=== PATIENT | female | born 1955 | race Caucasian/White ===

== ENCOUNTER 2017-02-17 16:44 | Emergency (ER) | payer OTHER ==
[~2017-02-17] VITALS: Ht 154.9 cm; Wt 80.0 kg
[~2017-02-17 16:44] MED LIST: BUSP5TAB3 PO; FENO160T6 PO; HYDR25TA4 PO; LAMO200T2 PO; NITR0.4T SL; OXYC5TAB72 PO; PROP20TA5 PO; PRV40T PO; TRAZ-115 PO; WARF6TAB6 PO
[2017-02-17 16:56] VITALS: BP 170/90; PULSE 77; RESP 16; O2SAT 99
[2017-02-17] MEDS ORDERED: GABA600T2 PO (17:01)
[2017-02-17] MEDS ORDERED: LISI1TAB7 PO (17:01)
--- NOTE | 2017-02-17 18:33 | ED.REPORT ---
HPI-Back Pain 40 and Over Date of Service Feb 17, 2017 ED Provider: Yamil Ruiz DO The patient is a 61 year old female w/ a hx of HTN, bipolar, and lower back arthritis who presents to the ED c/o sudden onset left sided lower back pain that shot down the back of her leg. It began this afternoon when she sat down into her car. Pt is on warfarin. She denies chest pain, abdominal pain, nausea , vomiting, numbness, and weakness. Nursing Notes Stated Complaint: LEFT HIP/LEG PAIN Chief Complaint: Back Pain or Injury Nursing Notes Reviewed: Yes Allergies: Coded Allergies: No Known Allergies (Verified Allergy, Unknown, 02/17/17) Scheduled Fenofibrate (Lofibra) 160 Mg Tablet 160 MG PO DAILY Gabapentin (Gabapentin) 600 Mg Tablet 600 MG PO TID Lamotrigine (Lamotrigine) 200 Mg Tablet 200 MG PO DAILY Lisinopril / HCTZ 10-12.5 mg (Lisinopril / HCTZ 10-12.5 mg) 1 Each Tablet 1 EACH PO DAILY Pravastatin (Pravachol) 40 Mg Tab 40 MG PO DAILY Propranolol HCl (Propranolol HCl) 20 Mg Tablet 20 MG PO BID Trazodone (Trazodone) 50 Mg Tablet 50 MG PO HS Warfarin Sodium (Warfarin Sodium) 6 Mg Tablet 6 MG PO DAILY Scheduled PRN Nitroglycerin SL (Nitrostat) 0.4 Mg Tab.subl 0.4 MG SL Q5MIN PRN PRN For Chest Pain oxyCODONE (oxyCODONE) 5 Mg Tablet 5 MG PO Q6 PRN PRN For Pain General Time Seen by MD: 18:31 Chief Complaint Back pain Hx Obtained From: Patient Arrived By: Walk-in Sudden in Onset?: Yes Onset Occurred: 1 - 4 hours ago Symptom Duration: Since onset Location: : Spinal lumbar area Quality: Painful Radiation: : Does not radiate Severity: Current: Moderate Recent Healthcare: No recent doctor visit, No recent hospitalization Similar Sx Previous: No Past Medical History Past Medical History 1. Hypertension. 2. History of outpatient treated pneumonia. 3. Heartburn. 4. Low back arthritis. 5. Bipolar disorder with history of more manic than depressive. 6. History of anxiety attacks many years ago. Apparently she had been having issues since she was a young child before she was diagnosed with bipolar disorder and spent time in mental hospital when she was younger. 7. History of right upper extremity thrombophlebitis, on six months of Coumadin. 8. 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 9. History of previous colon polyps with most recent colonoscopy showing multiple polyps that were removed by cautery and snare polypectomy except for one polyp that had to be broken down in pieces but then lost the pieces so could not extract at the end of procedure. 10. Past history of psoriasis. 11. Migraines 12. Cerebrovascular accident with 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 13. GI bleed -recently hospitalized 14. Right internal carotid artery stenosis Past Surgical History 1. Appendectomy. 2. Cholecystectomy. 3. Tonsillectomy. 4. Total hysterectomy. 5 Endoscopy Family History Noncontributory Smoking History Current Every Day Smoker Social History Alcohol Use: Denies alcohol use Drug Use: Denies drug use Other Social History: Local resident Ambulatory Status Independent Review of Systems Cardiovascular: Denies: Chest pain GI: Denies: Abdominal pain, Nausea, Vomiting Musculoskeletal: Reports: Back pain Neurologic: Denies: Numbness, Weakness Complete sys rev & neg: except as marked. Physical Exam Initial Vital Signs Vital Signs (First) Date Time Temp Pulse Resp B/P Pulse Ox O2 Delivery O2 Flow Rate FiO2 02/17/17 16:56 37.0 77 16 170/90 99 02/17/17 22:18 Room Air Initial VS: Reviewed Head / Eyes: Atraumatic, Normocephalic, PERRL ENT: Mucous membranes moist Extremities: Vascular intact, Neuro intact, No swelling, No tenderness Skin: Warm, Dry General/Constitutional: Awake, Alert, Cooperative, Not toxic appearing Respiratory / Chest: Atraumatic, Breath sounds NL, Breath sounds = bilat Cardiovascular: Heart rate NL, Regular rhythm, Heart sounds NL Abdomen: Atraumatic, Soft, Non-tender Flank / Spine / Paraspinal: Positive: Lumbar paraspinal tend... Neurologic: Oriented X3, Speech NL, No motor deficits, No sensory deficits, Reflexes equal bilat Interpretation & Diagnostics MRI LUMBAR SPINE CONCLUSION: Degenerative disc disease with left lateralizing disc protrusion at L4-5, with mild left inferior foraminal stenosis, and borderline central spinal stenosis. Annular tear and rightward disc protrusion at L3-4, with mild right lateral recess stenosis. Diffuse lower lumbar facet hypertrophy. No significant central spinal stenosis. Radiologist: Shamika Garrido M.D. Lab Results Interpretation Result Diagram: 02/17/17 1900 02/17/17 1900 Test 02/17/17 19:00 White Blood Count 7.3th/mm3 (3.8-10.1) Red Blood Count 4.24mil/mm3 (3.90-5.20) Hemoglobin 11.9g/dL (12.0-15.6) Hematocrit 37.8% (35.0-46.0) Mean Corpuscular Volume 89.2fL (81-100) Mean Corpuscular Hemoglobin 28.1pg (27.0-35.0) Mean Corpuscular Hemoglobin Concent 31.5% (32.0-37.0) Red Cell Distribution Width 14.1% (12.3-15.4) Platelet Count 294bil/L (150-400) Neutrophils (%) (Auto) 50.5% (40-74) Lymphocytes (%) (Auto) 36.4% (14-46) Monocytes (%) (Auto) 10.1% (4-12) Eosinophils (%) (Auto) 2.3% (0-5) Basophils (%) (Auto) 0.4% (0-3) Prothrombin Time 31.9sec (8.1-12.5) Prothromb Time International Ratio 2.92ratio Sodium Level 135mEq/L (134-144) Potassium Level 4.3mEq/L (3.5-5.2) Chloride Level 97mEq/L (97-108) Carbon Dioxide Level 23mmol/L (18-29) Blood Urea Nitrogen 14mg/dL (8-27) Creatinine 0.74mg/dL (0.57-1.00) Estimat Glomerular Filtration Rate 114mL/min (>59) Glucose Level 80mg/dL (60-99) Calcium Level 10.0mg/dL (8.5-10.1) Total Bilirubin 0.2mg/dL (0.0-1.2) Aspartate Amino Transf (AST/SGOT) 22U/L (0-50) Alanine Aminotransferase (ALT/SGPT) 26U/L (0-32) Alkaline Phosphatase 92U/L (25-165) Total Protein 7.6g/dL (6.4-8.4) Albumin 4.4g/dL (3.4-5.0) Re-Eval/Medical Decision Med Decision/Clinical Course Sudden severe lumbar pain with radiculopathy. She has warfarin use and an INR greater than 2. This puts her at risk for spontaneous hemorrhage/epidural hematoma. As such MRI was indicated and performed. MRI shows degenerative changes as well as disc disease and an annular tear. Certainly no evidence of an acute neurosurgical emergency. She did not have a cord syndrome. She is not of cauda equina syndrome. Her pain was adequately treated. She will be discharged with a take home pack of Percocet. Evidently she takes oxycodone at home and she is going to have a refill in 2 days. We will bridge her with for her 2 days with the oxycodone that were sending her with. I will have her call her doctor tomorrow to have the MRI reviewed and possible referral for physical therapy or neurosurgical consultation. Re-Evaluation/Progress : Time of Eval: 23:15 Patient Status: Condition improved Re-Evaluation/Progress Note: Pt rechecked. Pain is much improved after medication. Informed pt of plan of treatment and plan for discharge. She understands and agrees with plan. F/U and RTER warnings given. All questions addressed. Counseled Regarding: Diagnosis, Lab results, Need for follow-up, When/why to return to ED Discharge & Departure Impression: Primary Impression: Low back pain Chronicity: unspecified Back pain laterality: unspecified Sciatica presence : unspecified whether sciatica present Qualified Code: M54.5 - Low back pain Additional Impression: Left lumbar radiculopathy Disposition: Home Discharge Condition All VS Reviewed: Yes Condition: Stable Patient Instructions: Lumbar Radiculopathy (ED) Additional Instructions: The MRI shows that you have degenerative disc disease with a left lateralizing disc protrusion at L4-L5 with mild left foraminal stenosis and borderline central spinal stenosis. You also have an annular tear and moderate disc protrusion at L3 and L4 with mild lateral recess stenosis. You have degenerative changes throughout your low back. There was no epidural bleeding or epidural hematoma. Discuss these results with your primary care physician. Take 1-2 Percocet every 6 hours as needed for pain. Do not take any other sedating medications while taking the Percocet. Do not drive tonight or consume alcohol tonight. Do not drive consume alcohol or ingest acetaminophen while taking the Percocet. Call your doctor tomorrow morning for a follow-up appointment. Have your doctor get the final radiology review of the MRI. Referrals: Surya Gary MD (PCP) Scribe Attestation Portion of this note were transcribed by Cristine Lozano. I, Dr. Ruiz, personally performed the history, physical exam, and medical decision-making: I reviewed and confirmed the accuracy for the information in the transcribed note. Signed by: collins Schrader, 02/17/17 [id number] copies to: Surya Gary MD, Todd P DO Feb 17, 2017 18:33 Cristine Lozano Feb 17, 2017 22:57
[2017-02-17] MEDS ORDERED: HYDROmorphone 1 mg/mL Inj IM ONE (18:45)
[2017-02-17 19:14] LABS: BASOPHILS % (AUTO) 0.4 % (0-3); EOSINOPHILS % (AUTO) 2.3 % (0-5); MONOCYTES % (AUTO) 10.1 % (4-12); Mean Corpuscular Hemoglobin 28.1 pg (27.0-35.0); Mean Corpuscular Volume 89.2 fL (81-100); NEUTROPHILS % (AUTO) 50.5 % (40-74); Platelet Count 294 bil/L (150-400)
[2017-02-17 19:30] LABS: INR 2.92 ratio
[2017-02-17] MEDS: HYDROmorphone 0.5 mg/0.5 mL iSecure Syringe IVPUSH PRN ×7 (19:50→23:50)
[2017-02-17 22:18] VITALS: BP 168/90; PULSE 72; RESP 17; O2SAT 98
[2017-02-17] MEDS ORDERED: _oxyCODONE/APAP 5-325 mg Tablet PO PRN (23:40)
[2017-02-18 00:03] VITALS: BP 160/89; PULSE 70; RESP 16; O2SAT 99
--- NOTE | 2017-02-18 10:57 | DRSVH ---
PROCEDURE: MRI LUMBAR SPINE WITH AND WITHOUT CONTRAST ([id number]) INDICATIONS: Sudden severe back pain with radiculopathy TECHNIQUE: Noncontrast sagittal T1 spin echo and T2 fast spin echo, sagittal STIR, axial T1 and T2 fast spin ech o through the lumbar spine. In cases with scoliosis, additional coronal T2 fast spin echo may be per formed. After the administration of contrast, sagittal and axial T1 spin echo with fat saturation th rough the lumbar spine. COMPARISON: [facility], MR, LUMBAR SPINE W/O CONTRAST, 06/01/2008, 13:55. MR, LUMBAR SPINE W/O CONTRAST, 07/04/2006, 19:59. FINDINGS: Image quality: Excellent. Alignment and curvature: There is trace retrolisthesis of L3 on L4, unchanged Marrow: Marrow is of normal overall signal. No acute vertebral body compression fractures. No susp icious marrow enhancement. Spinal cord: Conus medullaris terminates at the L1 level. Visualized spinal cord demonstrates bud l signal, without suspicious enhancement. Paraspinous soft tissues: No paravertebral masses or abnormal enhancement. Discs: Mild/moderate desiccation is present throughout the lumbar spine. L1-L2: No disc bulge, spinal stenosis or foraminal narrowing. L2-L3: Minimal disc bulge without spinal stenosis or foraminal narrowing. L3-L4: Mild disc bulge with minimal spinal stenosis. Minimal to mild left foraminal narrowing with fa cet and ligamentum flavum hypertrophy. Posterior hyperintense signal is present most likely related t o small annular tear. L4-L5: Mild disc bulge including a left lateral/foraminal component. Mild to moderate spinal stenosis with moderate left and mild to moderate right foraminal narrowing. Facet and ligamentum flavum hyper trophy are present. L5-S1: Minimal disc bulge without spinal stenosis. IMPRESSION: 1. Mild multilevel degenerative changes as above. 2. Spinal stenosis is most prominent at L4-5 secondary to disc bulges with contributory effect of fac et and ligamentum flavum arthropathy. 3. Multilevel foraminal narrowing, secondary to facet and ligament of flavum arthropathy. 4. No evidence of epidural hematoma. Dictated by: Telma Light M.D. on 02/18/2017 at 10:25 Approved by: Telma Light M.D. on 02/18/2017 at 10:56
== END 2017-02-18 00:17 | disposition home or self-care (01) ==
LOC: SED 16:44
DX: M54.16 Radiculopathy, lumbar region (principal); I10 Essential (primary) hypertension; F17.200 Nicotine dependence, unspecified, uncomplicated; Z79.01 Long term (current) use of anticoagulants
CPT/HCPCS: 36415; 72158; 80053; 85025; 85610; 96374; 96375; 96376; 99285; A9585; J1170; J3360

== ENCOUNTER 2017-03-03 14:18 | Inpatient (IN) | payer MEDICARE, OTHER ==
[~2017-03-03] VITALS: Ht 154.9 cm; Wt 85.5 kg
[~2017-03-03 14:18] MED LIST changes: -BUSP5TAB3 PO; +GABA600T2 PO; -HYDR25TA4 PO; +LISI1TAB7 PO
--- NOTE | 2017-03-03 14:30 | NUR ---
Admit Pt direct admit to osc unit, 1022 from urgent care; arrived via w/c - transferred to bed. Oriented to room and call light. A&Ox3, KNOX, VSS, Stating intense pain 07/30, Call to IV Therapy for IV start, Tele placed, Nicotine patch applied to Left shoulder, Belongings in closet. MD present in room. Admit nurse present for admission. Pleasant and cooperative with care. Care continues.
[2017-03-03 14:40] VITALS: BP 193/79; PULSE 81; RESP 20; O2SAT 98
--- NOTE | 2017-03-03 15:57 | PCM.HPMED ---
Subjective Date of Service March 03, 2017 Primary Provider: Admitting Physician: Swati Russell MD Primary Care Physician: Surya Gary MD Attending Physician: Swati Russell MD Chief Complaint: Persistent back pain History of Present Illness: 61-year-old female with known spinal stenosis with back pain, hypertension, heartburn, bipolar, anxiety, right MCA embolic stroke in 2014 mild residual left -sided weakness, right upper extremity thrombophlebitis in 6 months of Coumadin presented with persistent back pain Patient stated that since she visited the emergency room last time, pain has not changed. pt visited ED, 02/17 with lower back pain, MRI showed multilevel DJD , spinal stenosis with disc bulding L4-5. Pain was controlled with Oxycodone, didn't show any signs of cord compression, pt was d/rosina to home. Patient went to urgent care today with persistent back pain, As per Urgent care provider, it was noted to be radicular pain with positive straight leg raising bilaterally, mild decrease on dorsiflexion on the left. No medicine was given, given persistent pain, patient was transferred to the hospital. pt stated that pain got worse since yesterday after she cleaned her house. Patient was afraid of walking up stairs as it really worsens her pain. Did not particularly notice that her pain got worse with bending or extending her back. Since patient had a stroke 2 years ago, patient has subtle weakness on the left side, which made her fall multiple times. Patient denied falling recently. not using cane or walker. Today patient also noticed that her left foot is weaker, although able to hold against gravity but cannot elevate. Back pain usually started on lower back, traveled to the left, intermittently down to her left knee but not to her left foot. not on right side, denied loosing bowel control, denied urinary retention. had last BM yesterday. Of note, pt is scheduled to see orthopedic on , never had steroid injection in the past. pt did take oxycodone several pills but didn't help her pain. She denies fever, chills, chest pain, shortness of breath, nausea, vomiting, abdominal pain, recent sick contact or travel Review of Systems: Pertinent positives as noted in history of present illness. All other systems were reviewed and are negative Allergies Coded Allergies: No Known Allergies (Verified Allergy, Unknown, 02/17/17) Home Medications Scheduled Fenofibrate (Lofibra) 160 Mg Tablet 160 MG PO DAILY Gabapentin (Gabapentin) 600 Mg Tablet 600 MG PO TID Lamotrigine (Lamotrigine) 200 Mg Tablet 200 MG PO DAILY Lisinopril / HCTZ 10-12.5 mg (Lisinopril / HCTZ 10-12.5 mg) 1 Each Tablet 1 EACH PO DAILY Pravastatin (Pravachol) 40 Mg Tab 40 MG PO DAILY Propranolol HCl (Propranolol HCl) 20 Mg Tablet 20 MG PO BID Trazodone (Trazodone) 50 Mg Tablet 50 MG PO HS Warfarin Sodium (Warfarin Sodium) 6 Mg Tablet 6 MG PO DAILY Scheduled PRN Nitroglycerin SL (Nitrostat) 0.4 Mg Tab.subl 0.4 MG SL Q5MIN PRN PRN For Chest Pain oxyCODONE (oxyCODONE) 5 Mg Tablet 5 MG PO Q6 PRN PRN For Pain PMH Past Medical History 1. Hypertension. 2. History of outpatient treated pneumonia. 3. Heartburn. 4. Low back arthritis. 5. Bipolar disorder with history of more manic than depressive. 6. History of anxiety attacks many years ago. Apparently she had been having issues since she was a young child before she was diagnosed with bipolar disorder and spent time in mental hospital when she was younger. 7. History of right upper extremity thrombophlebitis, on six months of Coumadin. 8. 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 9. History of previous colon polyps with most recent colonoscopy showing multiple polyps that were removed by cautery and snare polypectomy except for one polyp that had to be broken down in pieces but then lost the pieces so could not extract at the end of procedure. 10. Past history of psoriasis. 11. Migraines 12. Cerebrovascular accident with 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 13. GI bleed -recently hospitalized 14. Right internal carotid artery stenosis Past Surgical History 1. Appendectomy. 2. Cholecystectomy. 3. Tonsillectomy. 4. Total hysterectomy. 5 Endoscopy Family History Noncontributory Smoking History Current Every Day Smoker Social History Hx Alcohol Use: No Hx Substance Use: No Hx Tobacco Use: Yes (SMOKES 3 CIGARETTES PER DAY HX SINCE 13Y/O) Smoking Status: Current Every Day Smoker Additional Information lives with son Exam Vital Signs Vital Sign - Last Date Time Temp Pulse Resp B/P Pulse Ox O2 Delivery O2 Flow Rate FiO2 03/03/17 14:40 37.0 81 20 193/79 98 Room Air Exam NAD, comfortably laying down on the bed no JVD, MMM, no LAD RRR, nl s1, s2 no mrg CTAB, no w,c S,ND,NT,normoactive BS+ warm, no edema, pulses 2/2 neuro:Lt dorsiflexion 3/5, plantarflexion 3/5 SLRT positive on both side, radiating to left posterior Lab and Diagnostics X-Rays, CTs and MRIs PROCEDURE: MRI LUMBAR SPINE WITH AND WITHOUT CONTRAST ([id number]) INDICATIONS: Sudden severe back pain with radiculopathy TECHNIQUE: Noncontrast sagittal T1 spin echo and T2 fast spin echo, sagittal STIR, axial T1 and T2 fast spin echo through the lumbar spine. In cases with scoliosis, additional coronal T2 fast spin echo may be performed. After the administration of contrast, sagittal and axial T1 spin echo with fat saturation through the lumbar spine. COMPARISON: [facility], MR, LUMBAR SPINE W/O CONTRAST, 2007, 13:55. MR, LUMBAR SPINE W/O CONTRAST, 07/04/2006, 19:59. FINDINGS: Image quality: Excellent. Alignment and curvature: There is trace retrolisthesis of L3 on L4, unchanged Marrow: Marrow is of normal overall signal. No acute vertebral body compression fractures. No suspicious marrow enhancement. Spinal cord: Conus medullaris terminates at the L1 level. Visualized spinal cord demonstrates normal signal, without suspicious enhancement. Paraspinous soft tissues: No paravertebral masses or abnormal enhancement. Discs: Mild/moderate desiccation is present throughout the lumbar spine. L1-L2: No disc bulge, spinal stenosis or foraminal narrowing. L2-L3: Minimal disc bulge without spinal stenosis or foraminal narrowing. L3-L4: Mild disc bulge with minimal spinal stenosis. Minimal to mild left foraminal narrowing with facet and ligamentum flavum hypertrophy. Posterior hyperintense signal is present most likely related to small annular tear. L4-L5: Mild disc bulge including a left lateral/foraminal component. Mild to moderate spinal stenosis with moderate left and mild to moderate right foraminal narrowing. Facet and ligamentum flavum hypertrophy are present. L5-S1: Minimal disc bulge without spinal stenosis. IMPRESSION: 1. Mild multilevel degenerative changes as above. 2. Spinal stenosis is most prominent at L4-5 secondary to disc bulges with contributory effect of facet and ligamentum flavum arthropathy. 3. Multilevel foraminal narrowing, secondary to facet and ligament of flavum arthropathy. 4. No evidence of epidural hematoma. Dictated by: Telma Light M.D. on 02/18/2017 at 10:25 Approved by: Telma Light M.D. on 02/18/2017 at 10:56 Assessment & Plan Acute, active Severe back pain with radiculopathy, POA, likely due to known radiculopathy. MRI 02/18 showed spinal stenosis is most prominent at L4-5 secondary to disc bulging, no signs of cord compression -will aggressively pain control with tramadol, tylenol, oxycodone, flexeril, gabapentin(increased from home dose) -appreciate PT input -monitor urinary retention, daily PVR, stool incontinence, lt foot drop Chronic, stable HTN, HLD, resume home meds after med rec #Heartburn, denied active sx, ranitidine prn #Bipolar disorder with history of more manic than depressive, continue home med #History of right upper extremity thrombophlebitis, on six months of Coumadin, continue coumadin per pharmacy check INR today #History of macular embolic blindness, 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 #migraine, not active #Cerebrovascular accident with 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 continue AC #GI bleed -recently hospitalized, trends h/h #Right internal carotid artery stenosis, not active Dispo: Patient is admitted under observation status with expectation that she will be discharged within 24-48 hours, diet:general dvt ppx:HSQ Full code Time spent 65min Swati Russell MD March 03, 2017 15:38
[2017-03-03 15:59] VITALS: PULSE 67
[2017-03-03] MEDS ORDERED: FENO160T14 PO (16:28)
[2017-03-03] MEDS: HYDROmorphone 1 mg/mL Inj IVPUSH PRN ×2 (17:03→21:23)
[2017-03-03] MEDS ORDERED: WARF2.5T82 PO (17:42)
[2017-03-03] MEDS ORDERED: WARF5TAB7 PO (17:42)
[2017-03-03] MEDS ORDERED: WARF10TA4 PO (17:42)
[2017-03-03] MEDS ORDERED: WARF7.5T4 PO (17:42)
[2017-03-03] MEDS ORDERED: PRAZ1CAP2 PO (17:43)
[2017-03-03] MEDS ORDERED: PRAM0.5T3 PO (17:44)
[2017-03-03 18:25] LABS: INR 1.39 ratio
--- NOTE | 2017-03-03 18:42 | PCM.PHAPRO ---
Progress Warfarin Management by Pharmacy: -Indication: R upper extremity thrombophlebitis on warfarin x 6 months -Home Dose: warfarin 6mg -Inr Goal: 2-3 -Inr on admit: 1.39 -H/H: 9.2/29.3 Platelets: 301 -Drug Interactions: none noted -Disease Interactions: none noted -Plan: will continue with home dose of warfarin 6mg this evening as pt has not had a dose today. Serial inr's have been ordered to monitor/follow Jeanine Mcmullen [facility] March 03, 2017 18:42
[2017-03-03 20:00] VITALS: PULSE 76
[2017-03-03 20:45] VITALS: BP 120/68; PULSE 69; RESP 18; O2SAT 94
[2017-03-04] VITALS (8 sets, daily range): BP systolic 80–127; BP diastolic 44–81; PULSE 57–78; RESP 15–19; O2SAT 94–98
[2017-03-04] MEDS: HYDROmorphone 1 mg/mL Inj IVPUSH PRN ×2 (00:10→04:40)
--- NOTE | 2017-03-04 03:36 | NUR ---
Pain Pt. rates pain from 6-8/10 throughout shift. Pt. reports IV Dilaudid 1mg effective for pain. Will continue to monitor.
[2017-03-04 06:24] LABS: BASOPHILS % (AUTO) 0.3 % (0-3); Mean Corpuscular Hemoglobin 27.7 pg (27.0-35.0)
[2017-03-04 06:37] LABS: Phosphorus 5.4 mg/dL (2.5-4.9)
[2017-03-04 06:39] LABS: INR 1.36 ratio
[2017-03-04 06:44] LABS: MONOCYTES % (AUTO) 11.2 % (4-12); Mean Corpuscular Volume 91.9 fL (81-100); NEUTROPHILS % (AUTO) 50.3 % (40-74); Platelet Count 313 bil/L (150-400)
--- NOTE | 2017-03-04 07:01 | PCM.PHAPRO ---
Progress Warfarin Management by Pharmacy: -Indication: R upper extremity thrombophlebitis on warfarin x 6 months -Home Dose: warfarin 6mg -Inr Goal: 2-3 -Inr on admit: 1.39, today = 1.36 -H/H: 9.9/32.9 Platelets: 313 -Drug Interactions: none noted -Disease Interactions: none noted -Plan: will give an increased dose of warfarin 7.5mg this evening and follow Jeanine Mcmullen [facility] March 04, 2017 07:01
[2017-03-04] MEDS ORDERED: lamoTRIgine 100 mg Tablet PO SCH (08:30)
[2017-03-04] MEDS: FENOFIBRATE 160 MG PO SCH (08:30)
[2017-03-04] MEDS ORDERED: Polyethylene Glycol (PEG) 17 Gm Powder PO SCH (08:30)
--- NOTE | 2017-03-04 10:39 | PCM.PNMED ---
Subjective Date of Service March 04, 2017 Subjective pt looks much better today, still c/o 9/10 back pain radiating to lt knee no BM yet ,cannot ambulate yet denied tingling, burning on legs, left foot weakness unchanged per pt Exam Vital Signs Vital Sign - Last Date Time Temp Pulse Resp B/P Pulse Ox O2 Delivery O2 Flow Rate FiO2 03/04/17 10:21 66 03/04/17 08:11 36.4 15 122/70 96 Room Air Intake and Output 03/03/17 03/03/17 03/04/17 Cumulative From/Thru 15:00 23:00 07:00 03/03/17 14:39 - 03/04/17 06:25 Intake Total 400 ml 1560 ml 1960 ml Output Total 400 ml 400 ml Balance 400 ml 1160 ml 1560 ml Intake Oral 400 ml 1560 ml 1960 ml Output Urine Total 400 ml 400 ml # Voids 0 0 Exam NAD, comfortably laying down on the bed no JVD, MMM, no LAD RRR, nl s1, s2 no mrg CTAB, no w,c S,ND,NT,normoactive BS+ warm, no edema, pulses 2/2 neuro:Lt dorsiflexion 3/5, plantarflexion 3/5 SLRT positive on both side, radiating to left posterior IVs and Medications Medications Reviewed: Medications were reviewed in detail Lab and Diagnostics Result Diagram: 03/04/17 0503/04/17 0555 X-Rays, CTs and MRIs PROCEDURE: MRI LUMBAR SPINE WITH AND WITHOUT CONTRAST ([id number]) INDICATIONS: Sudden severe back pain with radiculopathy TECHNIQUE: Noncontrast sagittal T1 spin echo and T2 fast spin echo, sagittal STIR, axial T1 and T2 fast spin echo through the lumbar spine. In cases with scoliosis, additional coronal T2 fast spin echo may be performed. After the administration of contrast, sagittal and axial T1 spin echo with fat saturation through the lumbar spine. COMPARISON: [facility], MR, LUMBAR SPINE W/O CONTRAST, 2007, 13:55. MR, LUMBAR SPINE W/O CONTRAST, 07/04/2006, 19:59. FINDINGS: Image quality: Excellent. Alignment and curvature: There is trace retrolisthesis of L3 on L4, unchanged Marrow: Marrow is of normal overall signal. No acute vertebral body compression fractures. No suspicious marrow enhancement. Spinal cord: Conus medullaris terminates at the L1 level. Visualized spinal cord demonstrates normal signal, without suspicious enhancement. Paraspinous soft tissues: No paravertebral masses or abnormal enhancement. Discs: Mild/moderate desiccation is present throughout the lumbar spine. L1-L2: No disc bulge, spinal stenosis or foraminal narrowing. L2-L3: Minimal disc bulge without spinal stenosis or foraminal narrowing. L3-L4: Mild disc bulge with minimal spinal stenosis. Minimal to mild left foraminal narrowing with facet and ligamentum flavum hypertrophy. Posterior hyperintense signal is present most likely related to small annular tear. L4-L5: Mild disc bulge including a left lateral/foraminal component. Mild to moderate spinal stenosis with moderate left and mild to moderate right foraminal narrowing. Facet and ligamentum flavum hypertrophy are present. L5-S1: Minimal disc bulge without spinal stenosis. IMPRESSION: 1. Mild multilevel degenerative changes as above. 2. Spinal stenosis is most prominent at L4-5 secondary to disc bulges with contributory effect of facet and ligamentum flavum arthropathy. 3. Multilevel foraminal narrowing, secondary to facet and ligament of flavum arthropathy. 4. No evidence of epidural hematoma. Dictated by: Telma Light M.D. on 02/18/2017 at 10:25 Approved by: Telma Light M.D. on 02/18/2017 at 10:56 Assessment & Plan Acute, active Severe back pain with radiculopathy, POA, likely due to known radiculopathy. MRI 02/18 showed spinal stenosis is most prominent at L4-5 secondary to disc bulging, no signs of cord compression. Initially Lt foot weakness was concerning , however upon further hx, it is thought to be result from previous stroke, rather than acute radiculopathy. -will aggressively pain control with tramadol, tylenol, oxycodone, flexeril, gabapentin(increased from home dose), avoid dilaudid iv -appreciate PT input -monitor urinary retention, daily PVR, stool incontinence, lt foot drop Chronic, stable #HTN, HLD, resume home meds #Heartburn, denied active sx, ranitidine prn #Bipolar disorder with history of more manic than depressive, continue home med , added ativan 1mg tid prn for anxiety. #History of right upper extremity thrombophlebitis, on six months of Coumadin, this is previous remote episode, Ix of full dose AC is more likely multiple embolic phenomena, -continue coumadin per pharmacy, INR 1.x, duration likely indef. 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 #migraine, not active #Cerebrovascular accident with 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 continue AC #GI bleed -recently hospitalized, trends h/h #Right internal carotid artery stenosis, not active Dispo: d/c tomorrow if pain is controlled diet:general dvt ppx:HSQ Full code Time spent 35min Swati Russell MD March 04, 2017 10:39
--- NOTE | 2017-03-04 11:54 | NUR ---
Evaluation completed. Please go to "Notes" then click on "Assessments and Notes" (bottom left corner of screen). Then select appropriate discipline tab on top of screen.
--- NOTE | 2017-03-04 12:44 | NUR ---
Social Work-screening: Data:EMR Reviewed. Pt is a 61 y/o female who was admitted on 03/03/17 for radicular pain per H&P. Pt's insurance is [employer] and PCP is Surya Gary MD. EMR reviewed. Pt's readmission score is 4-high risk. RENALDO met with pt at beside to discuss discharge planning, SW role explained. Pt is alert and oriented x3. Pt resides at home with her son and daughter in law in a 2 story home, pt is able to stay on one level of the house. Pt does not use any DME and drives. Pt has no HH or SNF history. Pt has no fpc care insurance or VA benefits. SW discussed DPOA/ advanced directive, pt confirms she has not completed this, SW provided her with copy of paperwork. Pt has anxiety and bipolar at baseline. Pt sees local psychologist and feels like she is well managed. PT saw pt and recommended SNF placement, pt only ambulated 3 ft. SW discussed SNF placement with pt, pt states she will think about it, but she would prefer to return home with HH services and Fww. SW provided pt with HH choice list, pt would like referral to [facility] for RN, PT, and OT. RENALDO called Emmanuel with [facility] and provided him with referral for RN,PT, and OT,access given. SW to obtain RX for fww for pt and fax to [facility].Pt confirms that her son or other family member will provide transport home at discharge. Pt confirms today is not a good day to speak with son because he is on a trip, should be back tomorrow. RENALDO provided phone number and plan on white board in room. F2F in folder. SW will continue to follow. Assessment:Pt who would benefit from HH. Plan:Pt to discharge home when medically stable via POV. Referral made to [facility] for RN,OT,and PT, access given. Pt is declining SNF. SW to work on obtaining RX for fww. F2F in folder. SW will continue to follow. KYARA Amaya Addendum: 03/04/17 at 1524 by THAD WOODARD SS RENALDO spoke with [facility] [phone] who confirms that RX and coversheet just need to be faxed to [phone]. RENALDO faxed this into [facility] and requested they deliver to the Hospital. RENALDO will continue to follow. KYARA Amaya
[2017-03-04] MEDS: LORazepam 1 mg Tablet PO PRN (12:48)
--- NOTE | 2017-03-04 14:19 | NUR ---
choice list provided. KYARA Amaya
[2017-03-04] MEDS ORDERED: Warfarin 2.5 MG, Warfarin 5 MG PO SCH ×2 (17:00)
--- NOTE | 2017-03-04 17:30 | NUR ---
Pain/BP/Urinary Retention/BM/Tremor Pt pain all shift 05/30; unable to relieve pain. Pt BP this afternoon 80's/60's, HR down to 57 at times, pt not symptomatic. MD made aware of BP and HR; no new orders. Pt had not voided all shift; up to bsc without urinary output. MD notified, 1 time in/out cath done; 650cc urine output. Encouraged pt up to BSC q2hrs to see if that would relieve and explained that it be a good idea to bladder scan her q4hrs. Pt states, "I feel like I have to go, but not able to urinate." MD stopped PO Flexeril. Rectal exam done to check for bowel tone; muscle tone present, no impaction noted. Pt given stool softener earlier in shift, no BM yet. Pt c/o tremors being worse from time to time throughout shift today; Rn noted last c/o of this after dose of Gabapentin was given. Will alert NOC shift RN of this and encourage monitoring or having dosage adjusted as could be possible side effect of medication. Will continue to monitor with frequent rounds.
[2017-03-04] MEDS: Polyethylene Glycol (PEG) 17 Gm Powder PO SCH (22:06)
[2017-03-05] VITALS (7 sets, daily range): BP systolic 93–129; BP diastolic 49–73; PULSE 53–65; RESP 18–22; O2SAT 95–97
[2017-03-05] MEDS ORDERED: 0.9% Sodium Chloride 250 ML ONE (01:31)
[2017-03-05 04:18] LABS: BASOPHILS % (AUTO) 0.4 % (0-3); EOSINOPHILS % (AUTO) 1.7 % (0-5); MONOCYTES % (AUTO) 10.3 % (4-12); Mean Corpuscular Hemoglobin 27.5 pg (27.0-35.0); Mean Corpuscular Volume 91.3 fL (81-100); NEUTROPHILS % (AUTO) 46.9 % (40-74); Platelet Count 324 bil/L (150-400)
--- NOTE | 2017-03-05 04:41 | NUR ---
Urinary Retention/Low BP/ IV insertion Patient up to bsc but no output of urine. Patient bladder scanned and straight cath's with 352 output. Patient tolerated procedure well. Patient had episode of low bp throughout shift. Physician paged and bolus 250 NS administered. CHAPIS Bowles from [facility] assisted in assessing patient . BP taken manually and in normal range. Abu C RN inserted new IV placement. Patient resting comfortably. Call light within reach. Care continues.
[2017-03-05 04:51] LABS: INR 1.54 ratio
[2017-03-05 05:08] LABS: TROPONIN T 0.01 ug/L (0.0-0.011)
[2017-03-05] MEDS ORDERED: 0.9% Sodium Chloride 500 ML IV ONE (07:25)
[2017-03-05] MEDS: Polyethylene Glycol (PEG) 17 Gm Powder PO SCH ×2 (08:18→21:08)
[2017-03-05] MEDS: FENOFIBRATE 160 MG PO SCH (08:30)
--- NOTE | 2017-03-05 10:48 | PCM.PNMED ---
Subjective Date of Service March 05, 2017 Subjective pt thinks back pain is better, able to tolerate PT, developed urinary retention, was on in/out cath, PVR still >250 this AM, however , able to urinate some rectal tone was intact per production staff worker, no stool in continence reported. pt does have urger and sensation for urination Exam Vital Signs Vital Sign - Last Date Time Temp Pulse Resp B/P Pulse Ox O2 Delivery O2 Flow Rate FiO2 03/05/17 07:57 36.3 55 20 93/55 97 Room Air Intake and Output 03/04/17 03/04/17 03/05/17 Cumulative From/Thru 15:00 23:00 07:00 03/03/17 14:39 - 03/05/17 06:35 Intake Total 1220 ml 1250 ml 4430 ml Output Total 850 ml 775 ml 2025 ml Balance 370 ml 475 ml 2405 ml Intake Oral 1220 ml 1000 ml 4180 ml IV Total 250 ml 250 ml Output Urine Total 850 ml 775 ml 2025 ml # Voids 0 # Bowel Movements 1 1 Exam NAD, comfortably laying down on the bed no JVD, MMM, no LAD RRR, nl s1, s2 no mrg CTAB, no w,c S,ND,NT,normoactive BS+ warm, no edema, pulses 2/2 neuro:Lt dorsiflexion 4/5, plantarflexion 4/5, improved from prior day SLRT positive on both side, radiating to left posterior IVs and Medications Medications Reviewed: Medications were reviewed in detail Lab and Diagnostics Result Diagram: 03/05/17 0400 03/05/17 0400 X-Rays, CTs and MRIs PROCEDURE: MRI LUMBAR SPINE WITH AND WITHOUT CONTRAST ([id number]) INDICATIONS: Sudden severe back pain with radiculopathy TECHNIQUE: Noncontrast sagittal T1 spin echo and T2 fast spin echo, sagittal STIR, axial T1 and T2 fast spin echo through the lumbar spine. In cases with scoliosis, additional coronal T2 fast spin echo may be performed. After the administration of contrast, sagittal and axial T1 spin echo with fat saturation through the lumbar spine. COMPARISON: [facility], MR, LUMBAR SPINE W/O CONTRAST, 2007, 13:55. MR, LUMBAR SPINE W/O CONTRAST, 07/04/2006, 19:59. FINDINGS: Image quality: Excellent. Alignment and curvature: There is trace retrolisthesis of L3 on L4, unchanged Marrow: Marrow is of normal overall signal. No acute vertebral body compression fractures. No suspicious marrow enhancement. Spinal cord: Conus medullaris terminates at the L1 level. Visualized spinal cord demonstrates normal signal, without suspicious enhancement. Paraspinous soft tissues: No paravertebral masses or abnormal enhancement. Discs: Mild/moderate desiccation is present throughout the lumbar spine. L1-L2: No disc bulge, spinal stenosis or foraminal narrowing. L2-L3: Minimal disc bulge without spinal stenosis or foraminal narrowing. L3-L4: Mild disc bulge with minimal spinal stenosis. Minimal to mild left foraminal narrowing with facet and ligamentum flavum hypertrophy. Posterior hyperintense signal is present most likely related to small annular tear. L4-L5: Mild disc bulge including a left lateral/foraminal component. Mild to moderate spinal stenosis with moderate left and mild to moderate right foraminal narrowing. Facet and ligamentum flavum hypertrophy are present. L5-S1: Minimal disc bulge without spinal stenosis. IMPRESSION: 1. Mild multilevel degenerative changes as above. 2. Spinal stenosis is most prominent at L4-5 secondary to disc bulges with contributory effect of facet and ligamentum flavum arthropathy. 3. Multilevel foraminal narrowing, secondary to facet and ligament of flavum arthropathy. 4. No evidence of epidural hematoma. Dictated by: Telma Light M.D. on 02/18/2017 at 10:25 Approved by: Telma Light M.D. on 02/18/2017 at 10:56 Assessment & Plan Acute, active Severe back pain with radiculopathy, POA, likely due to known radiculopathy. MRI 02/18 showed spinal stenosis is most prominent at L4-5 secondary to disc bulging, no signs of cord compression. Initially Lt foot weakness was concerning , however upon further hx, it is thought to be result from previous stroke, rather than acute radiculopathy. -will aggressively pain control with tramadol, tylenol, oxycodone, avoid dilaudid iv -stopped flexeril given urinary rentention, continue gabapentin 300mg bid-home dose -continue PT to increase mobility, Walker was Rxed -monitor urinary retention, daily PVR, stool incontinence, lt foot drop KE, developed 03/04-, likely post-obstructive due to med induced, anti- cholinergic gabapentin, flexeril. -in/out cath with PVR q4h -trends i/o, creatinine, avoid renal toxin Chronic, stable #HTN, hold all BP meds, given low BP, bolus 500cc today #HLD, pt denied on any meds, start high-intensity statin, pt tolerated well. #Heartburn, denied active sx, ranitidine prn #Bipolar disorder with history of more manic than depressive, continue home med , added ativan 1mg tid prn for anxiety. stopped trazodone, #History of right upper extremity thrombophlebitis, on six months of Coumadin, this is previous remote episode, Ix of full dose AC is more likely multiple embolic phenomena, -continue coumadin per pharmacy, INR 1.x, duration likely indef. 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 #migraine, not active #Cerebrovascular accident with 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 continue AC #GI bleed -recently hospitalized, trends h/h #Right internal carotid artery stenosis, not active Dispo: likely 1-2more days, diet:general dvt ppx:HSQ Full code Time spent 35min Swati Russell MD March 05, 2017 10:47
--- NOTE | 2017-03-05 10:59 | PCM.PHAPRO ---
Progress Warfarin Management: -Indication: R upper extremity thrombophlebitis on warfarin x 6 months -Home Dose: warfarin 6mg -Inr Goal: 2-3 -Inr on admit: 1.39, 03/04= 1.36 03/05= 1.54 -H/H: 9.8/32.6 Platelets: 324 -Drug Interactions: none noted -Disease Interactions: none noted -Plan: inr is trending up. serum creatinine bumped to 1.22. will give warfarin 7mg this evening and follow Jeanine Mcmullen [facility] March 05, 2017 10:59
--- NOTE | 2017-03-05 13:28 | NUR ---
Urinary Retention Patient able to void this AM using bedside commode, 350 output. Patient bladder scanned, post-void residual 360. Patient soon felt urge to void, but unable to produce urine. Patient bladder scanned again and found to have 535 in bladder. Patient straight cathed with help from one other medical staff assistant with 450 output. Care is ongoing. Addendum: 03/05/17 at 1859 by LUDA HERBERT RN Patient able to void spontaneously, post void residual checked and found to be 149. Patient denies any discomfort to the bladder. Care is ongoing.
--- NOTE | 2017-03-05 13:56 | NUR ---
SW called [facility] to confirm they received Rx for FWW. [facility] confirmed FWW will be delivered to pt's room today via [employer].
--- NOTE | 2017-03-05 17:16 | NUR ---
Case Management: IMM explained to patient at 1705, all questions answered. Signed original placed in chart, copy given to patient. Maia Rollins RN
--- NOTE | 2017-03-06 00:23 | NUR ---
Activity/Pain On initial assessment, patient stated pain at 9/10 on pain scale. Oxycodone administered. Patient ambulating/pivoting to c with nurse assist. Patient urinating well. Call light within reach. Care continues.
[2017-03-06] MEDS: LORazepam 1 mg Tablet PO PRN ×2 (00:52→10:10)
[2017-03-06 01:09] VITALS: BP 113/67; PULSE 59; RESP 16; O2SAT 94
[2017-03-06 05:10] VITALS: BP 129/74; PULSE 54; RESP 16; O2SAT 97
[2017-03-06 07:18] LABS: INR 1.49 ratio
[2017-03-06 07:39] LABS: Magnesium 1.9 mg/dL (1.6-2.6); Phosphorus 4.7 mg/dL (2.5-4.9)
[2017-03-06] MEDS: Polyethylene Glycol (PEG) 17 Gm Powder PO SCH (07:45)
[2017-03-06] MEDS: FENOFIBRATE 160 MG PO SCH (07:50)
[2017-03-06 09:08] VITALS: BP 113/55; PULSE 75; RESP 18; O2SAT 94
[2017-03-06] MEDS ORDERED: GABA600T2 PO (09:37)
[2017-03-06] MEDS ORDERED: Docusate Sodium PO (09:37)
[2017-03-06] MEDS ORDERED: ATOR10TA66 PO (09:37)
[2017-03-06] MEDS ORDERED: ACET325T51 PO (09:37)
[2017-03-06] MEDS ORDERED: POLY17PO6 PO (09:37)
[2017-03-06] MEDS ORDERED: TRAM-14 PO (09:37)
[2017-03-06] MEDS ORDERED: HYDR12.5 PO (09:39)
--- NOTE | 2017-03-06 09:52 | PCM.DIMED ---
Discharge Instructions Date of Service March 06, 2017 Dates of Hospitalization March 03, 2017 at 14:18 Discharge Diagnosis Discharge Diagnosis intractable back due to lumbar radiculopathy acute kidney injury due to medicine induced, Medication Instructions please continue tylenol, tramadol, gabapentin for your back pain, you can take [id number] as needed for your back pain, three times per day Please note that your blood pressure regimen was changed. Given your low blood pressure, your HCTZ/lisinopril stopped. Please check your BP and start HCTZ 12.5mg if your blood pressure high numbner persistently >140 Please note that your cholesterol medicine was changed to Atorvastatin 40mg daily, given your markedly high cholesterol level, Please follow up with your doctor for further adjustment Diet Heart Healthy Patient Instructions You were hospitalized with intractable back pain, likely due to pinched nerve on your lower back based on MRI. Please avoid vigorous activities which can worsen your pain, but mild to moderate regular activities are helpful Given your limited strength, [facility] Follow-up plan Please follow up with your doctor in 2weeks, Please follow up with Orthopedic surgeon scheduled on Follow-up Provider: Suyra Gary MD Follow-up with PCP in: 2 weeks Swati Russell MD March 06, 2017 09:42
[2017-03-06] MEDS ORDERED: ALPRAZolam 0.5 mg Tablet PO PRN (12:45)
--- NOTE | 2017-03-06 14:28 | NUR ---
Spoke with Pamela Hernadez CM at [facility] and she is approving transfer to [facility] today. Updated IT LEAD Addendum: 03/06/17 at 1456 by BELEM MONGE CM Faxed orders to [facility] and placed copy in chart, patient's son will be providing transport. Updated IT LEAD
[2017-03-06] MEDS ORDERED: ALPR0.5T PO (14:57)
--- NOTE | 2017-03-06 15:09 | NUR ---
Transfer to [facility] Pt transferred to [facility] via private vehicle with her son. Report called to [facility] prior to transport. Pt and son were informed that direct transportation was required and they could not stop home first and they were agreeable to this. Anxiety well controlled with Xanax and prescription confirmed. Pain well controlled at this time; Tylenol given prior to leaving. All belongings with pt including her new FWW.
[2017-03-06] MEDS ORDERED: Warfarin 5 MG, Warfarin 2.5 MG PO SCH ×2 (17:00)
--- NOTE | 2017-03-06 21:53 | PCM.DC.MED ---
Discharge Summary Date of Service March 06, 2017 Dates of Hospitalization Date of Hospital Admission March 03, 2017 at 14:18 Date of Discharge: March 06, 2017 Providers: Admitting Physician: Swati Mc MD Primary Care Physician: Surya Gary MD Attending Physician: Swati Mc MD Diagnosis at Time of Discharge Diagnosis at Time of Discharge Acute dx intractable back due to lumbar radiculopathy acute kidney injury due to medicine induced, KE, post-obstructive Chronic dx #HTN, #HLD, #Heartburn, #Bipolar disorder with history of more manic than depressive, #History of right upper extremity thrombophlebitis, #History of macular embolic blindness, #migraine, #Cerebrovascular accident with 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 #hx of GI bleed, #Right internal carotid artery stenosis, Procedures XRay, CTs & MRIs PROCEDURE: MRI LUMBAR SPINE WITH AND WITHOUT CONTRAST ([id number]) INDICATIONS: Sudden severe back pain with radiculopathy TECHNIQUE: Noncontrast sagittal T1 spin echo and T2 fast spin echo, sagittal STIR, axial T1 and T2 fast spin echo through the lumbar spine. In cases with scoliosis, additional coronal T2 fast spin echo may be performed. After the administration of contrast, sagittal and axial T1 spin echo with fat saturation through the lumbar spine. COMPARISON: [facility], MR, LUMBAR SPINE W/O CONTRAST, 2007, 13:55. MR, LUMBAR SPINE W/O CONTRAST, 07/04/2006, 19:59. FINDINGS: Image quality: Excellent. Alignment and curvature: There is trace retrolisthesis of L3 on L4, unchanged Marrow: Marrow is of normal overall signal. No acute vertebral body compression fractures. No suspicious marrow enhancement. Spinal cord: Conus medullaris terminates at the L1 level. Visualized spinal cord demonstrates normal signal, without suspicious enhancement. Paraspinous soft tissues: No paravertebral masses or abnormal enhancement. Discs: Mild/moderate desiccation is present throughout the lumbar spine. L1-L2: No disc bulge, spinal stenosis or foraminal narrowing. L2-L3: Minimal disc bulge without spinal stenosis or foraminal narrowing. L3-L4: Mild disc bulge with minimal spinal stenosis. Minimal to mild left foraminal narrowing with facet and ligamentum flavum hypertrophy. Posterior hyperintense signal is present most likely related to small annular tear. L4-L5: Mild disc bulge including a left lateral/foraminal component. Mild to moderate spinal stenosis with moderate left and mild to moderate right foraminal narrowing. Facet and ligamentum flavum hypertrophy are present. L5-S1: Minimal disc bulge without spinal stenosis. IMPRESSION: 1. Mild multilevel degenerative changes as above. 2. Spinal stenosis is most prominent at L4-5 secondary to disc bulges with contributory effect of facet and ligamentum flavum arthropathy. 3. Multilevel foraminal narrowing, secondary to facet and ligament of flavum arthropathy. 4. No evidence of epidural hematoma. Dictated by: Telma Light M.D. on 02/18/2017 at 10:25 Approved by: Telma Light M.D. on 02/18/2017 at 10:56 Brief History HPI obtained on 03/03 61-year-old female with known spinal stenosis with back pain, hypertension, heartburn, bipolar, anxiety, right MCA embolic stroke in 2014 mild residual left -sided weakness, right upper extremity thrombophlebitis in 6 months of Coumadin presented with persistent back pain Patient stated that since she visited the emergency room last time, pain has not changed. pt visited ED, 02/17 with lower back pain, MRI showed multilevel DJD , spinal stenosis with disc bulding L4-5. Pain was controlled with Oxycodone, didn't show any signs of cord compression, pt was d/rosina to home. Patient went to urgent care today with persistent back pain, As per Urgent care provider, it was noted to be radicular pain with positive straight leg raising bilaterally, mild decrease on dorsiflexion on the left. No medicine was given, given persistent pain, patient was transferred to the hospital. pt stated that pain got worse since yesterday after she cleaned her house. Patient was afraid of walking up stairs as it really worsens her pain. Did not particularly notice that her pain got worse with bending or extending her back. Since patient had a stroke 2 years ago, patient has subtle weakness on the left side, which made her fall multiple times. Patient denied falling recently. not using cane or walker. Today patient also noticed that her left foot is weaker, although able to hold against gravity but cannot elevate. Back pain usually started on lower back, traveled to the left, intermittently down to her left knee but not to her left foot. not on right side, denied loosing bowel control, denied urinary retention. had last BM yesterday. Of note, pt is scheduled to see orthopedic on , never had steroid injection in the past. pt did take oxycodone several pills but didn't help her pain. She denies fever, chills, chest pain, shortness of breath, nausea, vomiting, abdominal pain, recent sick contact or travel Hospital Course Acute dx Severe back pain with radiculopathy, likely due to known radiculopathy. MRI 02/18 showed spinal stenosis is most prominent at L4-5 secondary to disc bulging, Patient was noted to have significant Left foot weakness on plantar/dorsiflexion , which was concerning. However, given hx of stroke, it was thought to be close to her baseline since her stroke. There was no signs of cord compression throughout hospitalization. Patient was started on aggressively pain control with tramadol, tylenol, oxycodone, initially required few dose of dilaudid IV. Pt was also on flexeril but developed urinary rentention, therefore disconintued. on Day3, pt was still unsteady on ambulation, PT recommended SNF. As pain was better controlled, left foot strength also was improved. Plan is to control pain with standing tylenol and tramadol, gabapentin was increased to 600mg bid, oxycodone as needed. KE, developed 03/04-, likely post-obstructive due to med induced, anti- cholinergic effect mainly from flexeril. patient was monitored with periodic in/ out cath with PVR q4h, eventually pt was able to void and renal function returned to normal. Chronic dx #HTN, had episode of hypotension, likely due to medicine, all of BP meds were held. #HLD, pt denied on any meds, noticed [id number], started high-intensity statin, lipitor 40mg daily, pt tolerated well. Plan is to continue Lipitor and possibly adding Fenofibrate if TG remains high(>400) #Heartburn, denied active sx, ranitidine prn #Bipolar disorder with history of more manic than depressive, since med rec was poorly done, it was hard to know what patient is actually on, pt was started on ativan 1mg tid prn for anxiety, pt stated that she take Xanax, which was given upon d/c #History of right upper extremity thrombophlebitis, on six months of Coumadin, this is previous remote episode, Ix of full dose AC is more likely multiple embolic phenomena documented in the past, continued coumadin per pharmacy, duration likely indef. 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 continue AC #hx of GI bleed, h/h remained stable #Right internal carotid artery stenosis, not active #RLS, insomnia, pt cannot remember which medicine she takes, meds were not in the list from PCP. Given patient's unoptimized medicine list, patient will need close follow up with , discussed current problems upon discharge Exam Vital Signs (Last) Date Time Temp Pulse Resp B/P Pulse Ox O2 Delivery O2 Flow Rate FiO2 03/06/17 11:21 Room Air 03/06/17 09:08 36.6 75 18 113/55 94 Exam NAD, comfortably laying down on the bed no JVD, MMM, no LAD RRR, nl s1, s2 no mrg CTAB, no w,c S,ND,NT,normoactive BS+ warm, no edema, pulses 2/2 neuro:Lt dorsiflexion 4/5, plantarflexion 4/5, improved from prior day SLRT positive on both side, radiating to left posterior Test 03/03/17 17:05 03/04/17 05:55 03/05/17 04:00 03/06/17 06:45 Hold Purple Top Tube Received (Received) Hold Doran Top Tube Received (Received) Triglycerides Level 478mg/dL (0-149) Cholesterol Level 341mg/dL (100-199) LDL Cholesterol, Calculated 207.400mg/dL (0-99) VLDL Cholesterol 95.600mg/dL HDL Cholesterol 38mg/dL (>39) Cholesterol/HDL Ratio 8.97 (0.0-4.4) White Blood Count 8.0th/mm3 (3.8-10.1) Red Blood Count 3.57mil/mm3 (3.90-5.20) Hemoglobin 9.8g/dL (12.0-15.6) Hematocrit 32.6% (35.0-46.0) Mean Corpuscular Volume 91.3fL (81-100) Mean Corpuscular Hemoglobin 27.5pg (27.0-35.0) Mean Corpuscular Hemoglobin Concent 30.1% (32.0-37.0) Red Cell Distribution Width 15.3% (12.3-15.4) Platelet Count 324bil/L (150-400) Neutrophils (%) (Auto) 46.9% (40-74) Lymphocytes (%) (Auto) 39.6% (14-46) Monocytes (%) (Auto) 10.3% (4-12) Eosinophils (%) (Auto) 1.7% (0-5) Basophils (%) (Auto) 0.4% (0-3) Hemoglobin A1c 5.5% (4.8-5.6) Troponin T 0.010ug/L (0.0-0.011) Thyroid Stimulating Hormone (TSH) 3.120uIU/mL (0.450-4.500) Hold Diaz Top Tube Received (Received) Prothrombin Time 16.1sec (8.1-12.5) Prothromb Time International Ratio 1.49ratio Sodium Level 137mEq/L (134-144) Potassium Level 5.1mEq/L (3.5-5.2) Chloride Level 99mEq/L (97-108) Carbon Dioxide Level 24mmol/L (18-29) Blood Urea Nitrogen 20mg/dL (8-27) Creatinine 0.74mg/dL (0.57-1.00) Estimat Glomerular Filtration Rate 114mL/min (>59) Glucose Level 100mg/dL (60-99) Calcium Level 9.7mg/dL (8.5-10.1) Phosphorus Level 4.7mg/dL (2.5-4.9) Magnesium Level 1.9mg/dL (1.6-2.6) Total Bilirubin 0.2mg/dL (0.0-1.2) Aspartate Amino Transf (AST/SGOT) 17U/L (0-50) Alanine Aminotransferase (ALT/SGPT) 18U/L (0-32) Alkaline Phosphatase 71U/L (25-165) Total Protein 6.5g/dL (6.4-8.4) Albumin 3.6g/dL (3.4-5.0) Discharge Medications Discharge Medications ([Docusate Sodium]) 250 MG CAPSULE 250 MG PO BID Prescribed by: SWATI MC MD Atorvastatin Calcium (Atorvastatin Calcium) 10 Mg Tablet 40 MG PO HS Prescribed by: SWATI MC MD Gabapentin (Gabapentin) 600 Mg Tablet 600 MG PO TID Prescribed by: SWATI MC MD Hydrochlorothiazide (Hydrochlorothiazide) 12.5 Mg Capsule 12.5 MG PO DAILY Prescribed by: SWATI MC MD Lisinopril / HCTZ 10-12.5 mg (Lisinopril / HCTZ 10-12.5 mg) 1 Each Tablet 1 EACH PO DAILY (Reported) Polyethylene Glycol 3350 (Miralax) 17 Gm Powd.pack 17 GM PO BID Prescribed by: SWATI MC MD Pramipexole Dihydrochloride (Mirapex) 0.5 Mg Tablet 0.5 MG PO HS (Reported) Tramadol (Ultram) 50 Mg Tablet 100 MG PO Q8H Prescribed by: SWATI MC MD Warfarin Sodium (Warfarin Sodium) 2.5 Mg Tablet 2.5 MG PO Fri (Reported) Warfarin Sodium (Warfarin Sodium) 5 Mg Tablet 5 MG PO sat, sat (Reported) Warfarin Sodium (Warfarin Sodium) 7.5 Mg Tablet 7.5 MG PO Sat, Sat (Reported) Warfarin Sodium (Warfarin Sodium) 10 Mg Tablet 10 MG PO Mon (Reported) As needed Acetaminophen (Acetaminophen) 325 Mg Tablet 650 MG PO TID PRN PRN For Fever Prescribed by: SWATI MC MD Alprazolam (Xanax) 0.5 Mg Tablet 0.5 MG PO TID PRN PRN For Anxiety Prescribed by: SWATI MC MD Nitroglycerin SL (Nitrostat) 0.4 Mg Tab.subl 0.4 MG SL Q5MIN PRN PRN For Chest Pain (Reported) Additional med instructions please continue tylenol, tramadol, gabapentin for your back pain, you can take [id number] as needed for your back pain, three times per day Please note that your blood pressure regimen was changed. Given your low blood pressure, your HCTZ/lisinopril stopped. Please check your BP and start HCTZ 12.5mg if your blood pressure high numbner persistently >140 Followup Plan Disposition: SNF Follow-up plan Please follow up with your doctor in 2weeks, Please follow up with Orthopedic surgeon scheduled on Discharge Diet: Heart Healthy Patient Instructions You were hospitalized with intractable back pain, likely due to pinched nerve on your lower back based on MRI. Please avoid vigorous activities which can worsen your pain, but mild to moderate regular activities are helpful Please continue PT in SNF to increase your mobility and improve your pain Follow-up Provider: Surya Gary MD Follow-up with PCP in: 2 weeks Time spent 65min Swati Mc MD March 06, 2017 11:44
== END 2017-03-06 15:09 | DRG 552 ==
LOC: OBSVTOIN 14:18 → INTOOBSV 14:18 → OSC 14:18
PROVIDERS: ADMIT Internal Medicine; ATTEND Internal Medicine
DX: M54.16 Radiculopathy, lumbar region (principal); I69.354 Hemiplegia and hemiparesis following cerebral infarction affecting left non-dominant side; N17.9 Acute kidney failure, unspecified; H54.42 Blindness, left eye, normal vision right eye; F17.200 Nicotine dependence, unspecified, uncomplicated; E78.5 Hyperlipidemia, unspecified; I10 Essential (primary) hypertension; F31.9 Bipolar disorder, unspecified; R33.9 Retention of urine, unspecified; T42.6X5A Adverse effect of other antiepileptic and sedative-hypnotic drugs, initial encounter; T48.1X5A Adverse effect of skeletal muscle relaxants [neuromuscular blocking agents], initial encounter; Y92.230 Patient room in hospital as the place of occurrence of the external cause

== ENCOUNTER 2017-03-12 13:30 | Emergency (ER) | payer MEDICARE ==
[~2017-03-12] VITALS: Ht 154.9 cm; Wt 87.7 kg
[~2017-03-12 13:30] MED LIST changes: +ACET325T51 PO; +ALPR0.5T PO; +ATOR10TA66 PO; +Docusate Sodium PO; -FENO160T6 PO; +HYDR12.5 PO; -LAMO200T2 PO; -OXYC5TAB72 PO; +POLY17PO6 PO; +PRAM0.5T3 PO; -PROP20TA5 PO; -PRV40T PO; +TRAM-14 PO; -TRAZ-115 PO; +WARF10TA4 PO; +WARF2.5T82 PO; +WARF5TAB7 PO; -WARF6TAB6 PO; +WARF7.5T4 PO
--- NOTE | 2017-03-12 13:37 | ED.REPORT ---
HPI-General Illness Date of Service March 12, 2017 ED Provider: Ray Berg MD History of Present Illness: having pain from back. at [facility]. there until she sees someone for her back. has a herniated disc. has had some issues with urinary retention. primary care is [facility]. Is there for physical therapy. Nursing Notes Stated Complaint: SHAKING/DIFFICULTY SWALLOWING Nursing Notes Reviewed: Yes Allergies: Coded Allergies: No Known Allergies (Verified Allergy, Unknown, 02/17/17) Scheduled ([Docusate Sodium]) 250 MG CAPSULE 250 MG PO BID Atorvastatin Calcium (Atorvastatin Calcium) 10 Mg Tablet 40 MG PO HS Gabapentin (Gabapentin) 600 Mg Tablet 600 MG PO TID Hydrochlorothiazide (Hydrochlorothiazide) 12.5 Mg Capsule 12.5 MG PO DAILY Lisinopril / HCTZ 10-12.5 mg (Lisinopril / HCTZ 10-12.5 mg) 1 Each Tablet 1 EACH PO DAILY Polyethylene Glycol 3350 (Miralax) 17 Gm Powd.pack 17 GM PO BID Pramipexole Dihydrochloride (Mirapex) 0.5 Mg Tablet 0.5 MG PO HS Tramadol (Ultram) 50 Mg Tablet 100 MG PO Q8H Warfarin Sodium (Warfarin Sodium) 2.5 Mg Tablet 2.5 MG PO Sat Warfarin Sodium (Warfarin Sodium) 5 Mg Tablet 5 MG PO sat, sat Warfarin Sodium (Warfarin Sodium) 7.5 Mg Tablet 7.5 MG PO Tu, Sat Warfarin Sodium (Warfarin Sodium) 10 Mg Tablet 10 MG PO Mon Scheduled PRN Acetaminophen (Acetaminophen) 325 Mg Tablet 650 MG PO TID PRN PRN For Fever Alprazolam (Xanax) 0.5 Mg Tablet 0.5 MG PO TID PRN PRN For Anxiety Nitroglycerin SL (Nitrostat) 0.4 Mg Tab.subl 0.4 MG SL Q5MIN PRN PRN For Chest Pain General Time Seen by MD: 13:36 Chief Complaint Other (shaking) Hx Obtained From: Patient Sudden in Onset?: No Caused by: Accidental Past Medical History Past Medical History 1. Hypertension. 2. History of outpatient treated pneumonia. 3. Heartburn. 4. Low back arthritis. 5. Bipolar disorder with history of more manic than depressive. 6. History of anxiety attacks many years ago. Apparently she had been having issues since she was a young child before she was diagnosed with bipolar disorder and spent time in mental hospital when she was younger. 7. History of right upper extremity thrombophlebitis, on six months of Coumadin. 8. 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 9. History of previous colon polyps with most recent colonoscopy showing multiple polyps that were removed by cautery and snare polypectomy except for one polyp that had to be broken down in pieces but then lost the pieces so could not extract at the end of procedure. 10. Past history of psoriasis. 11. Migraines 12. Cerebrovascular accident with 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 13. GI bleed -recently hospitalized 14. Right internal carotid artery stenosis Past Surgical History 1. Appendectomy. 2. Cholecystectomy. 3. Tonsillectomy. 4. Total hysterectomy. 5 Endoscopy Family History Noncontributory Smoking History Current Every Day Smoker Social History Alcohol Use: Denies alcohol use Drug Use: Denies drug use Other Social History: Local resident Ambulatory Status Independent Review of Systems Full Review of Systems Constitutional: Denies: Chills Ears / Nose / Throat: Denies: Ear drainage left, Ear drainage right Respiratory: Denies: Dyspnea on exertion GI: Denies: Abdominal pain Allergy / Immune: Denies: Allergic reaction Physical Exam Vital Signs Vital Signs Date Time Temp Pulse Resp B/P Pulse Ox O2 Delivery O2 Flow Rate FiO2 03/12/17 15:45 74 18 125/49 95 Room Air 03/12/17 14:00 37.7 91 15 135/74 93 Room Air Initial VS: Reviewed, Vital signs normal General/Constitutional: Well-developed, Well-nourished Head / Eyes: Atraumatic, Normocephalic, PERRL ENT: Mucous membranes moist, Conjunctiva normal, No scleral icterus Neck: Supple, Non-tender, Full range of motion Respiratory: Breath sounds normal, Clear to auscultation, No respiratory distress Cardiovascular: Regular rate & rhythm, Heart sounds normal, Intact distal pulses Abdomen / GI: Soft, Non-tender, No guarding, No rebound, No distention Back: No CVA tenderness Lymphatic: No lymphadenopathy Extremities: Vascular intact, Neuro intact, No swelling, No tenderness Skin: Warm, Dry, No cyanosis Neurologic: Alert, Oriented, Nonfocal Psychiatric: Mood/affect normal, Behavior normal, Normal thought content General/Constitutional: Awake, Alert, No acute distress, Well appearing, Well developed, Well hydrated, Well nourished, Cooperative, Not toxic appearing patient speaking clearly, no sign of deficits, no tremor noted at this time. Head / Eyes: Atraumatic, Normocephalic, PERRL, EOMI ENT: Atraumatic, Airway patent, Mucous membranes moist, Pharynx NL, No peritonsillar abscess Respiratory / Chest: Atraumatic, Breath sounds NL, Breath sounds = bilat, No respiratory distress Cardiovascular: Heart rate NL, Regular rhythm, Heart sounds NL, No gallop Abdomen: Atraumatic, Soft, Non-tender, McBurney's non-tender Interpretation & Diagnostics Lab Results Interpretation Test 03/12/17 13:49 03/12/17 15:42 Hold Urine Received (Received) Urine Color Yellow (YELLOW) Urine Appearance Clear (CLEAR,HAZY) Urine pH 5.5 (5.0-8.0) Urine Specific [place] 1.010 (1.003-1.035) Urine Protein Negativemg/dL (NEG,TRACE) Urine Glucose (UA) Negativemg/dL (NEGATIVE) Urine Ketones Negativemg/dL (NEGATIVE) Urine Occult Blood Negative (NEGATIVE) Urine Nitrite Negative (NEGATIVE) Urine Bilirubin Negative (NEGATIVE) Urine Urobilinogen Normalmg/dL (NORMAL) Urine Leukocyte Esterase Trace (NEGATIVE) Urine RBC 0-2/hpf (0-2) Urine WBC 0-5/hpf (0-5) Urine Epithelial Cells None/hpf (NONE-MOD) Urine Crystals None seen (NONE SEEN) Urine Bacteria Few/hpf (NONE-FEW) Urine Hyaline Casts None/lpf (NONE) Urine Granular Casts None seen (NONE SEEN) Urine Waxy Casts None seen (NONE SEEN) Urine Red Blood Cell Casts None seen (NONE SEEN) Urine White Blood Cell Casts None seen (NONE SEEN) Urine Mucus None seen (None Seen) Urine Trichomonas None seen (NONE SEEN) Urine Yeast None (NONE SEEN) Urinalysis Comment None Urine Culture Reflexed Indicated Lab Results Interpretation: patient with urinary retention, 1000 cc clear urine out. Re-Eval/Medical Decision Med Decision/Clinical Course 61 year old female with ongoing back pain. Has been on oxycodone with episodes of urinary retention. Discussed with Dr. Gary. patient with stress tremors. No sign of any cellulitis or abscess Discharge & Departure Primary Impression: Urinary retention Disposition: Transfer, [facility] Acute Care Discharge Condition All VS Reviewed: No Patient Instructions: Acute Urinary Retention in Women (ED) Additional Instructions: The pain medication that you are taking can stop you from going to the bathroom. That makes you very uncomfortable. You do have stress tremors which happen when you are stressed out. All opiates can cause urinary retention. Your urine is pending but right now it does not show any sign of an infection. Please continue with movement as much as possible. The more you move the less your pain will be. Orders for a straight cath are being written. Please keep the appointment with ortho that you have scheduled.. Referrals: Surya Gary MD (PCP) EDSupervising Provider for APC: Ray Berg MD Attending Statement Attending attestation: I saw this patient in conjunction with Carlee SOARES. I agree with the workup , evaluation, treatment and disposition. Ray Berg MD copies to: Surya Gary MD, Beck O MD March 12, 2017 13:37 Carlee Oliver March 12, 2017 15:15
[2017-03-12 14:00] VITALS: BP 135/74; PULSE 91; RESP 15; O2SAT 93
[2017-03-12 15:45] VITALS: BP 125/49; PULSE 74; RESP 18; O2SAT 95
[2017-03-12 16:21] LABS: APPEARANCE,URINE CLEAR (CLEAR,HAZY); COLOR,URINE YELLOW (YELLOW); OCCULT BLOOD,URINE NEGATIVE (NEGATIVE); PH,URINE 5.5 (5.0-8.0); UROBILINOGEN,URINE NORMAL (NORMAL)
== END 2017-03-12 16:40 | disposition home or self-care (01) ==
LOC: SED 13:30 → EDBD 13:30 → SED 16:40
DX: R33.9 Retention of urine, unspecified (principal); M51.36 Other intervertebral disc degeneration, lumbar region; I10 Essential (primary) hypertension; F17.200 Nicotine dependence, unspecified, uncomplicated; Z86.79 Personal history of other diseases of the circulatory system; Z86.73 Personal history of transient ischemic attack (TIA), and cerebral infarction without residual deficits; Z86.72 Personal history of thrombophlebitis; Z79.01 Long term (current) use of anticoagulants

== ENCOUNTER 2017-04-07 19:44 | Emergency (ER) | payer MEDICARE ==
[~2017-04-07] VITALS: Ht 154.9 cm; Wt 86.3 kg
[2017-04-07 19:50] VITALS: BP 145/71; PULSE 91; RESP 18; O2SAT 92
[2017-04-07] MEDS ORDERED: OXYC10TA8 PO (20:16)
[2017-04-07] MEDS ORDERED: PRAZ1CAP2 PO (20:16)
--- NOTE | 2017-04-07 20:16 | ED.REPORT ---
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 Associated symptoms include "orange" colored urine, constipation ( Last BM 8 days ago), urinary retention, flank pain and general malaise. She reports gaining "13 lbs in one day" and reports over 120 lbs in the past 2 months. She recently had a catheter placed 2 months ago. She was recently seen in the ED on 03/12 for urinary retention and was discharged in good condition following reassuring lab work. She denies any recent cough, nausea, vomiting, fever or chills. Nursing Notes Stated Complaint: KIDNEY PAIN,DISCOLORED URINE,SWELLING,BOWEL PROB Chief Complaint: Female Abdominal Pain Nursing Notes Reviewed: Yes Allergies: Coded Allergies: No Known Allergies (Verified Allergy, Unknown, 04/07/17) Scheduled ([Docusate Sodium]) 250 MG CAPSULE 250 MG PO BID Gabapentin (Gabapentin) 600 Mg Tablet 600 MG PO TID Lisinopril / HCTZ 10-12.5 mg (Lisinopril / HCTZ 10-12.5 mg) 1 Each Tablet 1 EACH PO DAILY Nitrofurantoin Monohyd/M-Cryst (MacroBid) 100 Mg Capsule 100 MG PO BID Polyethylene Glycol 3350 (Miralax) 17 Gm Powd.pack 17 GM PO BID Pramipexole Dihydrochloride (Mirapex) 0.5 Mg Tablet 0.5 MG PO HS Prazosin (Prazosin) 1 Mg Capsule 2 MG PO HS Warfarin Sodium (Warfarin Sodium) 5 Mg Tablet 5 MG PO Mon Warfarin Sodium (Warfarin Sodium) 5 Mg Tablet 7.5 MG PO Tue-Sun Scheduled PRN Acetaminophen (Acetaminophen) 325 Mg Tablet 650 MG PO TID PRN PRN For Fever Alprazolam (Xanax) 0.5 Mg Tablet 0.5 MG PO TID PRN PRN For Anxiety Nitroglycerin SL (Nitrostat) 0.4 Mg Tab.subl 0.4 MG SL Q5MIN PRN PRN For Chest Pain oxyCODONE (oxyCODONE) 10 Mg Tablet 10 MG PO Q4H PRN PRN For Pain General Time Seen by MD: 20:15 Chief Complaint Abdominal pain Hx Obtained From: Patient Arrived By: Walk-in Sudden in Onset?: No Onset Occurred: 3 days ago Symptom Duration: Since onset Progression since Onset: Unchanged Location: : Diffuse Quality: Painful Radiation: : Does not radiate Severity: Current: Moderate Severity: Maximum: Moderate Associated with: Reports: Back pain, Urinary retention, Denies: Fever, Nausea, Vomiting Pertinent Negative: Pt denies other symptoms Recent Healthcare: Recent doctor visit, Recent hospitalization Past Medical History Past Medical History 1. Hypertension. 2. History of outpatient treated pneumonia. 3. Heartburn. 4. Low back arthritis. 5. Bipolar disorder with history of more manic than depressive. 6. History of anxiety attacks many years ago. Apparently she had been having issues since she was a young child before she was diagnosed with bipolar disorder and spent time in [facility] when she was younger. 7. History of right upper extremity thrombophlebitis, on six months of Coumadin. 8. 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 9. History of previous colon polyps with most recent colonoscopy showing multiple polyps that were removed by cautery and snare polypectomy except for one polyp that had to be broken down in pieces but then lost the pieces so could not extract at the end of procedure. 10. Past history of psoriasis. 11. Migraines 12. Cerebrovascular accident with 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 13. GI bleed -recently hospitalized 14. Right internal carotid artery stenosis Past Surgical History 1. Appendectomy. 2. Cholecystectomy. 3. Tonsillectomy. 4. Total hysterectomy. 5 Endoscopy Family History Noncontributory Smoking History Current Every Day Smoker Social History Alcohol Use: Denies alcohol use Drug Use: Denies drug use Other Social History: Local resident Ambulatory Status Walker Review of Systems "[place]" Urine Weight gain Constitutional: Reports: Malaise, Denies: Chills, Fever GI: Reports: Abdominal pain, Constipation, Denies: Nausea, Vomiting Female: Reports: Flank pain, Urination decreased Complete sys rev & neg: except as marked. Physical Exam Vital Signs Vital Signs (First) Date Time Temp Pulse Resp B/P Pulse Ox O2 Delivery O2 Flow Rate FiO2 04/07/17 19:50 37.4 91 18 145/71 92 Room Air Initial VS: Reviewed Head / Eyes: Atraumatic, Normocephalic, PERRL Neck: Supple, Non-tender, Full range of motion Extremities: Vascular intact, Neuro intact, No swelling, No tenderness Skin: Warm, Dry, No cyanosis Neurologic: Alert, Oriented, Nonfocal Psychiatric: Mood/affect normal, Behavior normal, Normal thought content General/Constitutional: Awake, Alert, No acute distress Respiratory / Chest: Atraumatic, Breath sounds NL, Breath sounds = bilat, No respiratory distress Cardiovascular: Heart rate NL, Regular rhythm, Heart sounds NL Abdomen: Atraumatic, Soft Tenderness/Guarding/Rebound: Positive: Tender suprapubic (Mild ) Back: Atraumatic Interpretation & Diagnostics Lab Results Interpretation Result Diagram: 04/07/17 2305 04/07/17 2305 Test 04/07/17 22:27 04/07/17 23:05 Hold Urine Received (Received) White Blood Count 5.3th/mm3 (3.8-10.1) Red Blood Count 3.51mil/mm3 (3.90-5.20) Hemoglobin 9.1g/dL (12.0-15.6) Hematocrit 30.8% (35.0-46.0) Mean Corpuscular Volume 87.7fL (81-100) Mean Corpuscular Hemoglobin 25.9pg (27.0-35.0) Mean Corpuscular Hemoglobin Concent 29.5% (32.0-37.0) Red Cell Distribution Width 15.3% (12.3-15.4) Platelet Count 286bil/L (150-400) Neutrophils (%) (Auto) 42.7% (40-74) Lymphocytes (%) (Auto) 44.2% (14-46) Monocytes (%) (Auto) 9.1% (4-12) Eosinophils (%) (Auto) 3.2% (0-5) Basophils (%) (Auto) 0.8% (0-3) Sodium Level 134mEq/L (134-144) Potassium Level 5.9mEq/L (3.5-5.2) Chloride Level 100mEq/L (97-108) Carbon Dioxide Level 23mmol/L (18-29) Blood Urea Nitrogen 25mg/dL (8-27) Creatinine 1.06mg/dL (0.57-1.00) Estimat Glomerular Filtration Rate 75mL/min (>59) Glucose Level 82mg/dL (60-99) Calcium Level 9.2mg/dL (8.5-10.1) Magnesium Level 2.1mg/dL (1.6-2.6) Total Bilirubin 0.2mg/dL (0.0-1.2) Aspartate Amino Transf (AST/SGOT) 16U/L (0-50) Alanine Aminotransferase (ALT/SGPT) 14U/L (0-32) Alkaline Phosphatase 84U/L (25-165) Total Protein 7.1g/dL (6.4-8.4) Albumin 3.9g/dL (3.4-5.0) Lipase 27U/L (13-60) Hold Diaz Top Tube Received (Received) CT Abd / Pelvis Interpretation IMPRESSION: No clinical CT findings to explains the patient's symptoms Study type: Abdominal CT IV contrast, Abdom CT oral contrast Interpretation / Wet Read by: Interpret - Radiologist ([facility]) Re-Eval/Medical Decision Re-Evaluation/Progress : Time of Eval: 22:41 Patient Status: Condition improved Re-Evaluation/Progress Note: Pt is informed of her results and the intended treatment plan. All questions about her diagnosis are addressed. Counseled Regarding: Diagnosis, Lab results, Need for follow-up, When/why to return to ED Discharge & Departure Primary Impression: Abdominal pain Abdominal location: generalized Qualified Code: R10.84 - Generalized abdominal pain Disposition: Home Discharge Condition All VS Reviewed: Yes Condition: Stable Patient Instructions: Constipation (ED), Acute Abdominal Pain (ED) Additional Instructions: Thank you for trusting us with your care this evening. Your emergency department evaluation today including examination, lab work and abdominal CT are reassuring that there is no dangerous cause for concern at this time, however, a clear cause of your symptoms was not identified. I recommend that you schedule a follow-up appointment with your primary care physician in the next 1-2 days for a recheck. I recommend that you go the store tomorrow and buy a bottle of magnesium citrate to help relieve your constipation. Drink whole bottle. Please return to the emergency department for any new or worsening conditions including any worsening abdominal pain, high fevers, chills, worsening diarrhea , nausea or uncontrollable vomiting. Referrals: Surya Gary MD (PCP) Francesca Attestation Portions of this note were transcribed by Bala Vásquez. I, Dr. House personally performed the history, physical exam and medical decision-making; I reviewed and confirmed the accuracy of the information in the transcribed note. Signed by: Francesca Monroe, 04/08/17 0010. copies to: Surya Gary MD, Kirk H MD Apr 07, 2017 20:16 BALA VÁSQUEZ Apr 07, 2017 20:23
[2017-04-07] MEDS ORDERED: NITR100 PO (20:20)
[2017-04-07] MEDS ORDERED: WARF5TAB7 PO ×2 (20:20)
[2017-04-07] MEDS ORDERED: Iohexol 300 mg/mL 30 mL Inj PO ONE (20:30)
[2017-04-07 23:22] LABS: Mean Corpuscular Hemoglobin 25.9 pg (27.0-35.0); Mean Corpuscular Volume 87.7 fL (81-100); NEUTROPHILS % (AUTO) 42.7 % (40-74); Platelet Count 286 bil/L (150-400)
[2017-04-07 23:23] LABS: BASOPHILS % (AUTO) 0.8 % (0-3); EOSINOPHILS % (AUTO) 3.2 % (0-5); MONOCYTES % (AUTO) 9.1 % (4-12)
[2017-04-07 23:47] LABS: Magnesium 2.1 mg/dL (1.6-2.6)
[2017-04-07 23:49] VITALS: BP 100/46; PULSE 64; RESP 23; O2SAT 96
--- NOTE | 2017-04-08 09:19 | DRSVH ---
PROCEDURE: CT ABDOMEN AND PELVIS WITH CONTRAST ([id number]) INDICATIONS: abd pain, urinary retention TECHNIQUE: After the administration of oral and intravenous contrast, 5 mm thick sections acquired from the diap hragms to the symphysis. 5 mm thick coronal and sagittal reformats were performed. For radiation do se reduction, the following was used: automated exposure control, adjustment of mA and/or kV accordi ng to patient size. COMPARISON: CT, PELVIS W/CONTRAST, 12/12/2000, 20:41. CT, KUB - CT ([facility]), 10/08/2006, 10:41. CT, [facility] B - CT ([facility]), 10/01/2009, 14:35. FINDINGS: Image quality: Excellent. ABDOMEN: Lung bases: Lung bases are clear. Heart size is normal. Solid organs: Liver and spleen are normal in size and enhancement. Gallbladder is surgically absent . Biliary system is non-dilated. Pancreas enhances normally. No adrenal nodules. Kidneys are norm al in size and enhancement, without hydronephrosis. Peritoneum and bowel: Stomach, small bowel, and colon loops are normal in caliber and wall thickness . Moderate amount of stool noted throughout the colon. No free fluid or air. The appendix is not defi nitely visualized, however, no free fluid or inflammatory changes noted adjacent to the cecum. Nodes and vessels: No retroperitoneal or mesenteric adenopathy. Aorta and inferior vena cava are no rmal in caliber. Miscellaneous: Fat containing umbilical hernia noted. PELVIS: Genitourinary: Bladder is completely decompressed by the presence of a Hill catheter. Miscellaneous: No inguinal hernias or adenopathy. Probable injection granulomas noted in the subcuta neous fat of the buttocks. Bones: No suspicious bony lesions. No vertebral body compression fractures. IMPRESSION: 1. No acute disease process. 2. Moderate fecal loading throughout the colon. Please correlate with clinical data. 3. Status post cholecystectomy. Dictated by: Brittney Figueroa MD, PhD on 04/08/2017 at 9:10 Approved by: Brittney Figueroa MD, PhD on 04/08/2017 at 9:18
== END 2017-04-08 00:19 | disposition home or self-care (01) ==
LOC: SED 19:44
DX: R10.84 Generalized abdominal pain (principal); I10 Essential (primary) hypertension; I48.91 Unspecified atrial fibrillation; F41.9 Anxiety disorder, unspecified; R63.5 Abnormal weight gain; F17.200 Nicotine dependence, unspecified, uncomplicated; Z90.49 Acquired absence of other specified parts of digestive tract; Z90.89 Acquired absence of other organs; Z87.19 Personal history of other diseases of the digestive system; Z86.73 Personal history of transient ischemic attack (TIA), and cerebral infarction without residual deficits; Z90.710 Acquired absence of both cervix and uterus; Z79.01 Long term (current) use of anticoagulants
CPT/HCPCS: 36415; 74177; 80053; 83690; 83735; 85025; 99285; Q9967

== ENCOUNTER 2017-06-13 12:53 | Inpatient (IN) | payer MEDICARE ==
[~2017-06-13] VITALS: Ht 154.9 cm; Wt 81.9 kg
[2017-06-13] VITALS (8 sets, daily range): BP systolic 70–129; BP diastolic 34–93; PULSE 67–77; RESP 13–19; O2SAT 94–99
[~2017-06-13 12:53] MED LIST changes: -ATOR10TA66 PO; -HYDR12.5 PO; +NITR100 PO; +OXYC10TA8 PO; +PRAZ1CAP2 PO; -TRAM-14 PO; -WARF10TA4 PO; -WARF2.5T82 PO; -WARF7.5T4 PO
[2017-06-13] MEDS ORDERED: 0.9% Sodium Chloride 1,000 ML IV ONE (13:16)
--- NOTE | 2017-06-13 13:16 | ED.REPORT ---
HPI-Dyspnea / Wheezing Date of Service Jun 13, 2017 ED Provider: Bassam Hercules MD Pt is a 62 year old female with a history of HTN, CVA, who presents to the ED complaining of SOB onset yesterday. She c/o associated odynophagia, lightheadedness, neck pain, headache, mild cough, decreased appetite, and diaphoresis. She denies chest pain, fever, dizziness, chills, and any other symptoms. The pt reports that she has chronic intermittent episodes of tremors onset 3 days ago that resulted in a ground level fall yesterday. Her symptoms were gradual in onset since her fall, and she presented to her PCP yesterday. The pt was able to drink water today, but she reports that she feels like something is blocking her airway. She is able to speak during her episodes of shaking, and she admits to diaphoresis when she has the episodes. 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 Nursing Notes Stated Complaint: HARD TIME BREATHING/SHAKY Chief Complaint: General Complaint Nursing Notes Reviewed: Yes ([employer] not reconciled) Allergies: Coded Allergies: No Known Allergies (Verified Allergy, Unknown, 06/13/17) Scheduled Duloxetine (Duloxetine) 60 Mg Capsule.dr 60 MG PO DAILY Gabapentin (Gabapentin) 800 Mg Tablet 800 MG PO TID Lisinopril / HCTZ 10-12.5 mg (Lisinopril / HCTZ 10-12.5 mg) 1 Each Tablet 1 EACH PO DAILY Prazosin (Prazosin) 1 Mg Capsule 2 MG PO HS Warfarin Sodium (Warfarin Sodium) 5 Mg Tablet 5 MG PO DIRECTED Warfarin Sodium (Warfarin Sodium) 5 Mg Tablet 7.5 MG PO DIRECTED Scheduled PRN Acetaminophen (Acetaminophen) 325 Mg Tablet 650 MG PO Q4H PRN PRN For Pain Alprazolam (Xanax) 0.5 Mg Tablet 0.5 MG PO TID PRN PRN For Anxiety Docusate Sodium (Docusate Sodium) 250 Mg Capsule 250 MG PO DAILY PRN PRN For Constipation Nitroglycerin SL (Nitrostat) 0.4 Mg Tab.subl 0.4 MG SL Q5MIN PRN PRN For Chest Pain oxyCODONE (oxyCODONE) 10 Mg Tablet 10 MG PO Q4H PRN PRN For Pain General Time Seen by MD: 13:15 Chief Complaint Shortness of breath Hx Obtained From: Patient Arrived By: Walk-in Sudden in Onset?: No Onset Occurred: Yesterday Symptom Duration: Since onset Quality: Painful (head ) Radiation: : Does not radiate Severity: Current: Moderate Severity: Maximum: Moderate Recent Healthcare: Recent doctor visit Similar Sx Previous: No Past Medical History Past Medical History 1. Hypertension. 2. History of outpatient treated pneumonia. 3. Heartburn. 4. Low back arthritis. 5. Bipolar disorder with history of more manic than depressive. 6. History of anxiety attacks many years ago. Apparently she had been having issues since she was a young child before she was diagnosed with bipolar disorder and spent time in mental hospital when she was younger. 7. History of right upper extremity thrombophlebitis, on six months of Coumadin. 8. 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 9. History of previous colon polyps with most recent colonoscopy showing multiple polyps that were removed by cautery and snare polypectomy except for one polyp that had to be broken down in pieces but then lost the pieces so could not extract at the end of procedure. 10. Past history of psoriasis. 11. Migraines 12. Cerebrovascular accident with 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 13. GI bleed -recently hospitalized 14. Right internal carotid artery stenosis Past Surgical History 1. Appendectomy. 2. Cholecystectomy. 3. Tonsillectomy. 4. Total hysterectomy. 5 Endoscopy Family History Noncontributory Smoking History Current Every Day Smoker Social History Alcohol Use: Denies alcohol use Drug Use: Denies drug use Other Social History: Good social support, Local resident Ambulatory Status Walker Review of Systems Constitutional: Denies: Chills, Fever Respiratory: Reports: Non-productive cough (mild), Shortness of breath Cardiovascular: Denies: Chest pain Musculoskeletal: Reports: Neck pain Skin: Reports Diaphoresis Complete sys rev & neg: except as marked. Neurologic: Reports: Headache, Lightheaded, Shaking, Denies: Dizziness Physical Exam Initial Vital Signs Vital Signs (First) Date Time Temp Pulse Resp B/P Pulse Ox O2 Delivery O2 Flow Rate FiO2 06/13/17 13:01 36.6 76 16 70/34 94 Room Air 06/13/17 15:05 3 Initial VS: Reviewed, Vital signs abnormal Head / Eyes: Atraumatic, Normocephalic Abdomen / GI: Soft, Non-tender Extremities: Vascular intact, Neuro intact Skin: Warm, Dry, No cyanosis Neurologic: Alert, Oriented, Nonfocal Psychiatric: Mood/affect normal, Behavior normal General/Constitutional: Awake, Alert Behavior: Positive: Anxious Mentating Neck: Atraumatic, Full range of motion Respiratory / Chest: Breath sounds = bilat She does appear short of breath, but she is not bronchospastic. I cannot tell if she has mild stridor that is intermittent (not persistent). She is not overtly hoarse, but her family thinks her voice has changed since yesterday. She is tachypneic and dypneic. Cardiovascular: Heart rate NL, Regular rhythm, Heart sounds NL Heart Rate / Rhythm: Negative: Tachycardia There are no signs of inadequate perfusion. ENT: Atraumatic There is no angioedema of her lips or tongue. Interpretation & Diagnostics Lab Results Interpretation Result Diagram: 06/13/17 1338 06/13/17 1338 Test 06/13/17 13:38 06/13/17 15:14 White Blood Count 12.2th/mm3 (3.8-10.1) Red Blood Count 3.70mil/mm3 (3.90-5.20) Hemoglobin 9.7g/dL (12.0-15.6) Hematocrit 32.6% (35.0-46.0) Mean Corpuscular Volume 88.1fL (81-100) Mean Corpuscular Hemoglobin 26.2pg (27.0-35.0) Mean Corpuscular Hemoglobin Concent 29.8% (32.0-37.0) Red Cell Distribution Width 16.0% (12.3-15.4) Platelet Count 366bil/L (150-400) Neutrophils (%) (Auto) 75.5% (40-74) Lymphocytes (%) (Auto) 14.5% (14-46) Monocytes (%) (Auto) 8.8% (4-12) Eosinophils (%) (Auto) 0.8% (0-5) Basophils (%) (Auto) 0.2% (0-3) Prothrombin Time 27.8sec (8.1-12.5) Prothromb Time International Ratio 2.55ratio Sodium Level 133mEq/L (134-144) Potassium Level 7.9mEq/L (3.5-5.2) Chloride Level 94mEq/L (97-108) Carbon Dioxide Level 18mmol/L (18-29) Blood Urea Nitrogen 75mg/dL (8-27) Creatinine 7.80mg/dL (0.57-1.00) Estimat Glomerular Filtration Rate 7mL/min (>59) Glucose Level 99mg/dL (60-99) Lactic Acid Level 0.8mmol/L (0.4-2.0) Calcium Level 8.3mg/dL (8.5-10.1) Magnesium Level 2.4mg/dL (1.6-2.6) Total Bilirubin 0.2mg/dL (0.0-1.2) Aspartate Amino Transf (AST/SGOT) 13U/L (0-50) Alanine Aminotransferase (ALT/SGPT) 12U/L (0-32) Alkaline Phosphatase 98U/L (25-165) Troponin T < 0.010ug/L (0.0-0.011) Pro-B-Type Natriuretic Peptide 681.8pg/mL (0-287) Total Protein 6.9g/dL (6.4-8.4) Albumin 3.8g/dL (3.4-5.0) Lab Results Interpretation: CBC +leukocytosis CMP severe hyperkalemia, severe renal failure-new compared with April 16 Troponin negative BNP minimally elevated-likely secondary to renal failure alone Lactic acid normal Blood cultures 2 pending UA positive for markers of infection, culture pending ECG Interpretation ECG Interpretation: QRS is 111 ms with 110 being normal Time: 13:45 Interpreted by: ED physician Normal ECG Interpretation: Normal rate X-Ray Chest Interpretation Chest Xray Interpretation: IMPRESSION: No acute cardiopulmonary disease. Dictated by: Steve Chery M.D. on 06/13/2017 at 14:19 View: Portable, 1 view Interpretation / Wet Read by: Interpret - Radiologist X-Ray Interpretation Xray Interpretation: IMPRESSION: No acute radiographic findings. If further characterization of the soft tissues of the neck is warranted, soft tissue neck CT is recommended. Dictated by: Elizabeth Molina M.D. on 06/13/2017 at 13:59 X-Ray Ordered: Neck CT Chest Interpretation IMPRESSION: No acute intracranial disease process. Dictated by: Brittney Figueroa MD, PhD on 06/13/2017 at 14:39 Study type: Chest CT no contrast Interpretation / Wet Read by: Interpret - Radiologist Re-Eval/Medical Decision Med Decision/Clinical Course This is a 62-year-old female presents complaining of increased shortness of breath since yesterday, describes a discomfort in her throat, and appears to have a component of possible stridor. Persistent, but intermittent. The family thinks his spinal bit of a voice change, but the patient has a seemingly normal voice in her apartment. She is a very poor historian. 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 Today she felt this shortness of breath and was brought in. On initial exam she is an inconsistent findings, she is alert, in mild respiratory distress, with this intermittent hint of stridor but it was not persistent, and her voice was not clear-cut abnormal, no obvious airway angioedema or pathology was at [place] on external exam. Her chest exam her lungs are clear, but I cannot exclude an upper airway pathology initially. Additionally her initial blood pressure listed at triage was very low, although repeat blood pressure was then normal-she had bounding pulses and was alert initially. She has a small sutured wound on her forehead. Initially patient received racemic epi, steroids, and I plan magnesium all this ultimately was not given. As as trying to sort things out, then she had a repeat low blood pressure, and with [place] if this might be an allergic reaction and giving her 0.3 mg IM epinephrine-which resulted in complete resolution of her symptoms., Had no respiratory symptoms. Again no objective visual angioedema or other pathology was identified-there is vague sense of possible stridor, combined with hypotension that raise the concern for the possibility of anaphylaxis, although that she did not have clear-cut precipitant or other symptoms. The labs returned and were notable for severe, new complete renal failure with profound hyperkalemia. Again no evidence of hyperkalemia is clearly evident on the EKG, but given the level of acute hyperkalemia with a normal renal function a month ago-the patient see the full panoply of medications. Had a transient alteration in mental status, and which point I did obtain records from yesterday 's to the PCP which revealed the patient had this head trauma which is the source of the scalp laceration repair, but had not had head imaging and she is anticoagulated with therapeutic INR, so stat CT of the brain was obtained was negative. Chest x-ray revealed no evidence of fluid overload or overt pathology. She received IV fluids given the clinical concern for hypovolemia. She is being admitted to the CCU in improved condition. Nephrology saw the patient in the department, hospitalist to see the patient. At this point the cause of the original complaint of the SOB or ?stridor remains unclear - but all respiratory symptoms and complaints have resolved. Source of Hx: Old records Re-Evaluation/Progress #1: Time of Eval: 14:02 Patient Status: Condition improved Re-Evaluation/Progress Note: Pt rechecked. Pt reports that she feels completely better and is currently asymptomatic. All questions addressed. Re-Evaluation/Progress #2: Time of Eval: 14:55 Patient Status: Condition worsened Re-Evaluation/Progress Note: Pt rechecked. Informed pt of diagnosis and plan for admission. Pt understands and agrees with plan for admission. All questions addressed. Re-Evaluation/Progress #3: Time of Eval: 15:31 Re-Evaluation/Progress Note: Pt rechecked. Consultation #1: Consulted With: Hospitalist Call Returned at: 15:11 R And D Lab Technician: Will see patient, Agrees with eval, Agrees with plan, Accepts admit Note: Consulted with Faraz Ayoub, resident on-call for hospitalist. Discussed pt's case. Consultation #2: Referral / Consult Name: Perez Bajwa DO Consulted With: Nephrology Call Returned at: 15:16 R And D Lab Technician: Will see patient, Agrees with eval, Agrees with plan Note: Consulted with Dr. Bajwa. Discussed pt's case. Consultation #3: Call Returned at: 15:31 Note: Consulted with Resident Ayoub, following his consultation with the pt. He reports that the pt was talking on her phone when she had an episode and that she resists eyelid opening. Consultation #4: Referral / Consult Name: Perez Bajwa DO Consulted With: Nephrology Call Returned at: 15:40 R And D Lab Technician: Agrees with eval, Agrees with plan Note: Discussed pt's case. Recommends US. He reports that he thinks acute nephritis. Consultation #5: Referral / Consult Name: Perez Bajwa DO Consulted With: Neurology Call Returned at: 15:55 Note: Discussed pt's case. Counseled Regarding: Diagnosis, Lab results, Need for admission Discharge & Departure Impression: Primary Impression: Acute renal failure Additional Impressions: Hyperkalemia Urinary tract infection Anticoagulated by anticoagulation treatment Disposition: ADMITTED TO HOSPITAL Discharge Condition All VS Reviewed: Yes Condition: Stable Referrals: Surya Gary MD (PCP) Crit Care Except Billable Proc Time Spent: 30-74 minutes Services Performed: Patient management by me, Time spent at bedside, Reviewing test results, Reviewing imaging, Discussing patient care, Documentation in record Scribe Attestation Portions of this note were transcribed by Irlanda Us. I, Dr. Hercules personally performed the history, physical exam and medical decision-making; I reviewed and confirmed the accuracy of the information in the transcribed note. Signed by: Francesca Alejo, 06/13/17. copies to: Surya Gary MD, Matthew F MD Jun 13, 2017 13:16 Irlanda Arellano Jun 13, 2017 13:25
[2017-06-13] MEDS ORDERED: Epinephrine Racemic 2.25% 0.5 mL Inhalation Solution NEB ONE ×2 (13:24→13:30)
[2017-06-13] MEDS ORDERED: MethylprednisoLONE Sodium Succinate 62.5 mg/mL 2 mL Inj IVPUSH ONE (13:30)
[2017-06-13] MEDS ORDERED: Magnesium Sulf 2 Gm/50mL Water 2 GM in IV Premix 1 EACH IV ONE (13:30)
[2017-06-13 13:41] LABS: BASOPHILS % (AUTO) 0.2 % (0-3); EOSINOPHILS % (AUTO) 0.8 % (0-5); MONOCYTES % (AUTO) 8.8 % (4-12); Mean Corpuscular Hemoglobin 26.2 pg (27.0-35.0); Mean Corpuscular Volume 88.1 fL (81-100); NEUTROPHILS % (AUTO) 75.5 % (40-74); Platelet Count 366 bil/L (150-400)
[2017-06-13 13:59] LABS: INR 2.55 ratio
--- NOTE | 2017-06-13 14:01 | DRSVH ---
PROCEDURE: X-RAY NECK SOFT TISSUE ([id number]) INDICATIONS: SOB TECHNIQUE: 2 views of the neck were acquired. COMPARISON: None. FINDINGS: Airway: The airway appears patent. Soft tissues: Prevertebral soft tissues are normal in thickness. The epiglottis and aryepiglottic f olds appear normal. No soft tissue gas. Bones: No suspicious bony lesions. Moderate to severe degenerative changes are present within the ce rvical spine. IMPRESSION: No acute radiographic findings. If further characterization of the soft tissues of the n katerina is warranted, soft tissue neck CT is recommended. Dictated by: Elizabeth Molina M.D. on 06/13/2017 at 13:59 Approved by: Elizabeth Molina M.D. on 06/13/2017 at 14:00
[2017-06-13 14:08] LABS: TROPONIN T < 0.010 ug/L (0.0-0.011)
[2017-06-13 14:18] LABS: Magnesium 2.4 mg/dL (1.6-2.6)
--- NOTE | 2017-06-13 14:22 | DRSVH ---
PROCEDURE: X-RAY CHEST ONE VIEW, PORTABLE ([id number]) INDICATIONS: Shortness of breath. TECHNIQUE: One view of the chest was acquired. COMPARISON: [facility], CR, CHEST 2VW, 12/18/2016, 2:33 PM. [facility], CR, CHEST 1V W (PORTABLE), 03/16/2015, 15:31. FINDINGS: Surgical changes and devices: None. Lungs and pleura: No pleural effusions or pneumothorax. Lungs are clear. Mediastinum: Mediastinal contours appear normal. Heart size is normal. Bones and chest wall: No suspicious bony lesions. Overlying soft tissues appear unremarkable. IMPRESSION: No acute cardiopulmonary disease. Dictated by: Steve Chery M.D. on 06/13/2017 at 14:19 Approved by: Steve Chery M.D. on 06/13/2017 at 14:21
[2017-06-13] MEDS ORDERED: Sodium Bicarb (50 mEq) 8.4% 1 mEq/mL 50 mL Syringe IVPUSH ONE (14:25)
[2017-06-13] MEDS ORDERED: Sodium Polystyrene Sulfonate 0.25 Gm/mL 500 mL Suspension PO ONE (14:25)
[2017-06-13] MEDS ORDERED: Albuterol 0.5% (5mg/mL) 20 mL Inhalation Solution NEB ONE (14:25)
[2017-06-13] MEDS ORDERED: Insulin Human REGular-Omnicell 100 Unit/mL IV ONE (14:25)
[2017-06-13] MEDS ORDERED: Lidocaine 2% 6mL Topical Jelly TOPICAL ONE (14:30)
--- NOTE | 2017-06-13 14:45 | DRSVH ---
PROCEDURE: CT BRAIN WITHOUT CONTRAST ([id number]) INDICATIONS: head trauma, anticoagulated TECHNIQUE: Noncontrast 4.5 mm thick angled axial sections acquired from the foramen magnum to the vertex, with c oronal reformats. COMPARISON: [facility], CT, BRAIN W/O CONTRAST, 01/30/2014, 18:19. Outside Film, CT, CT BRAIN WO CON, 03/16/2015, 22:32. Outside Film, MR, MR BRAIN WO CON, 03/20/2015, 13:26. Outside Film, CT, CT BRAIN WO CON, 03/19/2015, 1:30. Outside Film, CT, CT BRAIN WO CON, 03/28/2015, 15:16. FINDINGS: Image quality: Excellent. CSF spaces: Basal cisterns are patent. No extra-axial fluid collections. The ventricles are symmet tanisha in size and shape. Brain: No intracranial bleeds or masses. There is cerebral volume loss for age, with resultant vent ricular and sulcal prominence. There are periventricular and deep white matter chronic small vessel ischemic changes. Encephalomalacia noted in the inferior aspect of the left cerebral hemisphere lisbeth tible area of prior infarction. There is intracranial internal carotid artery and vertebral artery a therosclerosis. Skull and face: Calvarium and visualized facial bones appear intact, without suspicious lesions. Sinuses: Visualized sinuses and mastoids are clear. IMPRESSION: No acute intracranial disease process. Dictated by: Brittney Figueroa MD, PhD on 06/13/2017 at 14:39 Approved by: Brittney Figueroa MD, PhD on 06/13/2017 at 14:44
[2017-06-13] MEDS ORDERED: Calcium GLUCO 10% (Gm) Inj 2 GM in 0.9% Sodium Chloride 100 ML IV ONE (14:50)
[2017-06-13] MEDS ORDERED: Calcium GLUCOnate 10% (Gm) 1 Gm/10 mL Inj ONE (14:51)
[2017-06-13] MEDS ORDERED: 0.9% Sodium Chloride 100 ML ONE (14:52)
--- NOTE | 2017-06-13 15:00 | NUR ---
Decreased LOC I went in to pt. room to completed Med rec and while I was there pt. began to be less and less responsive. BP 77/33, P 69, SP02 85% RA. contacted. IV therapy in to start IV, meds pulled from [facility] to give.
[2017-06-13] MEDS ORDERED: Senna-Docusate 8.6-50 mg Tablet PO PRN (15:05)
[2017-06-13] MEDS ORDERED: Alum-Mag Hydrox-Simeth 30 mL Suspension PO PRN (15:05)
[2017-06-13] MEDS ORDERED: Polyethylene Glycol (PEG) 17 Gm Powder PO PRN (15:05)
[2017-06-13] MEDS ORDERED: Ondansetron 2 mg/mL 2 mL Inj IVPUSH PRN (15:05)
[2017-06-13] MEDS ORDERED: DULO60CA61 PO (15:31)
[2017-06-13] MEDS ORDERED: GABA800T2 PO (15:34)
[2017-06-13] MEDS ORDERED: DOCU250C2 PO (15:45)
[2017-06-13] MEDS ORDERED: ACET325T51 PO (15:45)
[2017-06-13 15:47] LABS: APPEARANCE,URINE CLOUDY (CLEAR,HAZY); COLOR,URINE DARK YELLOW (YELLOW)
[2017-06-13 15:48] LABS: OCCULT BLOOD,URINE NEGATIVE (NEGATIVE); UROBILINOGEN,URINE NORMAL (NORMAL)
[2017-06-13] MEDS ORDERED: Dextrose 5% 250 ML IV SCH (16:00)
[2017-06-13] MEDS: 0.9% Sodium Chloride 1,000 ML IV SCH ×2 (16:13→22:30)
--- NOTE | 2017-06-13 16:26 | CONS ---
[address] [address] CONSULTATION REPORT PATIENT: JESSI MOREJON : 1955 MR#: [id number] ADMIT: 06/13/2017 JOB ID: [id number] DATE OF SERVICE: 06/13/2017 RENAL CONSULTATION: REFERRING PHYSICIAN: Surya Gary M.D. HISTORY: The patient is a rather unfortunate 62-year-old white female, who was admitted to [facility] for acute kidney injury and acute hyperkalemia. Renal consultation is being sought for further evaluation of her acute kidney injury. According to her records in March, her creatinine was 1.0. She has recently been on nitrofurantoin for an unknown duration. In the last week or so, she states that she has started having what appears to be myoclonic jerks, generalized weakness, decreased oral intake, headache, difficulty in swallowing, and some shortness of breath. Apparently, she was seen yesterday and placed on Xanax and she subsequently had a fall striking her head. The initial evaluation of this was negative and several sutures were put in. She states that today she began to have increasing shortness of breath and worsening myoclonic jerks. Initially when she presented it was thought that she may be having an allergic reaction, was given epinephrine with some slight improvement in her symptomatology. Her chest x-ray did not show any evidence of any pulmonary edema. Her lab subsequently came back with a potassium of 7.9, a BUN and creatinine were 75 and 7.8. Her blood pressure was quite low and she has been given several liters of normal saline with some improvement. The patient denies a history of any prior renal problems. There is no history of any hematuria, proteinuria, recurrent urinary tract infections, renolithiasis, hepatitis, lupus, rheumatoid arthritis or diabetes. She does have a history of hypertension and a history of several strokes in the past. She is currently on warfarin. She denies any nausea, vomiting, diarrhea, fever, chills or arthralgias. PAST MEDICAL HISTORY: Significant for several strokes as detailed above with some residual left-sided weakness. Past medical history is also significant for hypertension, recurrent urinary tract infections, peripheral neuropathy, GERD; however, I do not see where she is on any PPIs. 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 There is also a history of psoriasis, right carotid stenosis and a GI bleed. PAST SURGICAL HISTORY: Remarkable for appendectomy, cholecystectomy, tonsillectomy, hysterectomy and several endoscopies. She is not allergic to any food or any medication. SOCIAL HISTORY: She states that she continues to smoke daily but denies any alcohol or illicit drug use. She is somewhat limited in her activities of daily living and normally requires a walker. MEDICATIONS: At time of admission include gabapentin, lisinopril, nitrofurantoin, polyethylene glycol, , Prazosin and warfarin. FAMILY HISTORY: Noncontributory. REVIEW OF SYSTEMS: As detailed above. Otherwise is noncontributory. PHYSICAL EXAMINATION: Revealed a pale, chronically ill appearing 62-year-old white female, who was arousable and able to answer only simple questions. Her blood pressure was 82/60 with a heart rate of 78. HEENT examination is remarkable for pale sclerae. Cornea, conjunctivae, pupils and extraocular muscles were intact. Mucous membranes were dry. Neck is supple without adenopathy, thyromegaly or jugular venous distention. Lungs are clear to auscultation. Heart was regular and rhythmical but bradycardic. Abdomen is soft with diminished bowel sounds. There was no tenderness, rebound, guarding or masses noted. Extremities did not show any evidence of any clubbing, cyanosis or edema. Skin turgor is diminished and there is no evidence of any rashes. Neurological examination is remarkable for some [id number] left-sided weakness in both upper and lower extremities, resting tremor, and myoclonic jerks. LABORATORY EXAMINATION: Her hemoglobin is 9.7, hematocrit 32.6. Red cell indices were normocytic but hypochromic. INR was 2.55, urinalysis is pending at time of this dictation. Her sodium is 133, potassium 7.9, chloride 94, bicarbonate 18, BUN and creatinine were 75 and 7.8 respectively. Calcium is slightly low at 8.3, and liver function studies were normal. I reviewed her chest x-ray and I do not show any evidence of any pneumonic processes, masses or pulmonary edema. IMPRESSION: 1. Dehydration. 2. Drug-induced acute kidney injury possibly secondary to Macrobid. 3. Acute kidney injury. 4. Hyperkalemia secondary to acute kidney injury. 5. Metabolic acidosis secondary to acute kidney injury. 6. Hypertension with hypertensive heart disease and hypertensive nephrosclerosis. RECOMMENDATION: I would like to get a stat renal ultrasound along with a urine for eosinophils. Obviously we need to hold Macrobid and lisinopril at this time. I have also spoken with the resident and would like to continue aggressive IV fluids at 100-120 an hour. I would also like to get a urine free eosinophils and repeat 30 g of Kayexalate at 10 o'clock this evening. Once again, I would like to thank you for allowing me to participate in the care of this rather unfortunate patient. I will be following her closely with you.
[2017-06-13] MEDS ORDERED: Heparin 5,000 Unit/mL Inj SUBQ SCH (16:30)
[2017-06-13] MEDS ORDERED: Piperacillin-Tazo 3.375 Gm Inj 3.375 GM in Dextrose 5% Minibag Plus 50 ML IV SCH (16:30)
--- NOTE | 2017-06-13 16:57 | NUR ---
P: Respiratory Distress I: Pt arrived from ED and was oriented to Bed controls, call light. Hypertensive on arrival but became hypotensive as she settled in. Pt drowsy but awakens easily and is oriented. NS 125cc/hr. kayexalate given po with sips of H2O to wash it down with and pt swallowed fine once she is awakened.Saline lock patent without redness or swelling at the site. Afebrile. Pt arrived with a Hill cath. Sats stable on 2L/NC. NSR.US of kidneys being done at this time. MRSA swab sent. UA sent in ED. E: Guarded S: Alert and oriented. Uses call light appropriately. Frequent rounding. Pt requests her son take her medications home when he arrives shortly.
[2017-06-13] MEDS ORDERED: Sodium Chloride LOK Flush 10 mL Syringe IVFLUSH PRN ×2 (17:25)
--- NOTE | 2017-06-13 17:32 | PCM.HPMED ---
Subjective Date of Service Jun 13, 2017 Primary Provider: Admitting Physician: Jin Chisholm DO Primary Care Physician: Surya Gary MD Attending Physician: Jin Chisholm DO Chief Complaint: Patient is a 62-year-old female with a medical history significant for hypertension, bipolar w/ ted, history of thrombophlebitis,GI bleed, CVA, and right carotid stenosis presented to the ED with neck pain, headaches and " airway block". History of Present Illness: Per patient, states increasing neck pain with respiratory difficulty and headache in addition to diaphoresis. Patient states having urinary symptoms were over a week, increase in urinary frequency and cloudiness of the urine. Last Saturday she is also reported having significant diarrhea and vomiting. And yesterday, patient states that she had a ground-level fall, lacerated her head and thus, went to urgent care for further evaluation and received stitches. She believes this is due to her unsteadiness and increasing tremors. Patient denies any fevers, chills. Patient was unable to tell me whether she received a new medication that included antibiotics for the urinary tract infection. Patient is unreliable historian. She has periods of waxing waning lucidity. Medical records at [facility], patient was recently started on nitrofurantoin. In the ED, blood pressure was 70/40's, altered mental status, CT of the head was done, unremarkable. As was x-ray of the neck and chest, unremarkable. Blood work came back with critical values, BUNs 75, creatinine 7.8, and potassium 7.9. Anion gap of 21, WBC 12.2 with neutrophil 35.5%, UA showing WBC of greater than 50, urine leukocyte esterase large, and heavy bacteria. Patient was given albuterol, slender, calcium gluconate, and also Kayexalate. Nephrology Dr. Bajwa was consulted and recommended the patient continue to receive Kayexalate in addition to obtaining US kidney, and start NS 120cc/hr. Separately, for her dyslipidemia, she received racemic epinephrine, Solu-Medrol , and also albuterol which seemed to improve her symptoms. Review of Systems: A comprehensive review of systems was conducted with the patient and found to be negative except as above in the History of Present Illness. 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 Migraine 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 History GI bleed History of right internal carotid artery stenosis Surgical History Appendectomy Cholecystectomy Tonsillectomy Total hysterectomy Family History Family history of coronary artery disease Social History Hx Alcohol Use: No Hx Substance Use: No Hx Tobacco Use: Yes (SMOKES 3 CIGARETTES PER DAY HX SINCE 13Y/O) Smoking Status: Current Every Day Smoker Exam Vital Signs Vital Sign - Last Date Time Temp Pulse Resp B/P Pulse Ox O2 Delivery O2 Flow Rate FiO2 06/13/17 15:55 36.6 77 16 83/43 98 Nasal Cannula 3 Exam General: No acute distress, appropriately interactive HEENT: Normocephalic, atraumatic. PERRLA, EOMI, Anicteric sclerae, moist conjunctivae. Neck: No JVD, No bruits. No lymphadenopathy or thyromegaly. Cardiovascular: Regular rate and rhythm with no murmurs, rubs, or gallops appreciated Pulmonary: b/l air sound with no crackles, wheezes, or rhonchi. no use of accessory muscles. Abdomen: +Bowel sound, Soft, nontender, nondistended. Extremities: No clubbing or cyanosis, no lymphedema, no b/l lower leg edema Skin: Normal temperature, turgor, and texture; no rash. No visualized skin ulcer. Neurological: CN II-VII grossly intact, moving equally on all 4 extremities, tremulous, uncoordinated jerking of the extremities Psychiatric: AO 3 mixed with periods of somnolence. Lab and Diagnostics Result Diagram: 06/13/17 1338 06/13/17 8238 Assessment & Plan Patient is a 62-year-old female with a medical history significant for hypertension, bipolar w/ ted, history of thrombophlebitis,GI bleed, CVA, and right carotid stenosis presented with UTI,KE with hyperkalemia admits to the ICU. Hyperkalemia -Likely secondary to KE -No EKG changes, no peak T waves -Received insulin, calcium gluconate, albuterol, and Kalexate -Repeat BMP, telemetry Acute kidney injury -Likely secondary to UTI, macrolide, and dehydration, possible pyelonephritis -US kidney ordered -Passenger [employer] Inspector Dr. Bajwa has been consulted and is following the patient. -Hydrate with NS 120cc/hr. PICC line ordered as BP soft. received 2L in the ED UTI -evident on UA -Blood/urine culture pending -ceftriaxone ordered Altered mentation -2nd to uremia, hypotension -CT-Head negative -Monitor, low threshold to MRI head. Hypotension -Etiology unknown possible infectious related -Norepinephrine started -Echocardiogram in a.m. Chronic medical condition History of thrombophlebitis -INR 2.55 -Warfarin ordered Hypertension -holding home meds lisinopril-HCTZ and prazosin 2nd to hypotension Bipolar/manic/depression -holding duloxetine for now given risk for seizure -lorazepam 0.5mg BID PRN for anxiety Right back pain -holding home gabapentin -Start Oxycodone-APAP 10-325mg Q6H for pain and withdraw CODE STATUS full code DVT prophylaxis warfarin Patient Status: Patient is admitted under inpatient status with expected length of stay GREATER than 2 midnights due to severity of presenting symptoms, risk of adverse event, and complexity of treatment plan. Resuscitation Status: CPR: Attempt Resuscitation Time spent 55 minutes Attending Statement I have seen and evaluated the patient at bedside in addition to directly supervising care provided by resident physician on 06/13/2017. I agree with above documentation. This is a 62 yo F without navjot of renal disease presenting with likely interstitial nephritis related to medication reaction. With consultation of nephrology specialist, we have elected initially for aggressive medical management and close observation prior to consideration of hemodialysis. Constantino Ayoub DO Jun 13, 2017 17:32 Jin Chisholm DO Jun 14, 2017 07:48
[2017-06-13] MEDS: cefTRIAXone 2,000 mg/D5W 50 mL IV Minibag Plus IV SCH ×2 (17:37)
[2017-06-13] MEDS ORDERED: Dextrose 5% 250 ML IV ONE (17:48)
--- NOTE | 2017-06-13 18:29 | PCM.PHAPRO ---
Progress Date of Service: Jun 13, 2017 Patient is a 62-year-old female with a medical history significant for hypertension, bipolar w/ ted, history of thrombophlebitis,GI bleed, CVA, and right carotid stenosis presented to the ED with neck pain, headaches and " airway block". Dx: right upper extremity thrombophlebitis; hx of DVT INR goal 2-3 INR 2.55 (at goal) give warfarin 5mg tonight per Dr Ayoub per pharmacy Gaston Harris PharmD Gaston Harris Jun 13, 2017 18:29
--- NOTE | 2017-06-13 18:54 | DRSVH ---
PROCEDURE: US RENAL SONOGRAM INDICATIONS: Renal failure TECHNIQUE: Real-time scanning was performed of the kidneys and bladder, with image documentation. COMPARISON: None. FINDINGS: Kidneys: Kidneys are normal in size. Right kidney measures 11.0 cm long; left kidney measures 10.4 cm long. Right renal cortical thickness is 1.2 cm; left renal cortical thickness is 1.7 cm. Renal c ortical echotexture is normal. No hydronephrosis or nephrolithiasis. There is a region of contour or deformity involving the middle third cortex of the right kidney, measuring up to 2.0 x 1.7 x 2.5 cm. This has a small immediately adjacent focus that is hyperechoic, potentially a manifestation of a p reviously identified similar structure 04/12/15 during a [facility] ultrasound. Recent C T scanning in this area, however, has included contrast enhancement and has not shown a mass with thi s appearance. Bladder: Hill catheter empties the bladder lumen. Miscellaneous: No free pelvic fluid. IMPRESSION: A source of renal insufficiency is not found. A Hill catheter fully empties the bladde r lumen. The current ultrasound shows imaging findings suggestive of a mass measuring up to 2.5 cm in dimensio n, involving the middle third cortex. However, recent CT scanning is not shown a mass in this area. Therefore I recommend obtaining a followup ultrasound in 7-10 days to further assess the right kidne y has a single limited organ study. The appearance may represent a false positive diagnosis. There may be a small several millimeter angiomyolipoma in that same area. Please refer to the prior ultras ound from 04/12/15 discussed above. Dictated by: Alexis Eng M.D. on 06/13/2017 at 18:49 Approved by: Alexis Eng M.D. on 06/13/2017 at 18:53
--- NOTE | 2017-06-13 19:14 | DRSVH ---
PROCEDURE: X-RAY PICC LINE PLACEMENT BY NURSE ([id number]) INDICATIONS: need for greater venous access COMPARISON: None. FINDINGS: PICC was placed by the intravenous therapy team from the right side. Fluoroscopic spot fi lm demonstrates tip of PICC in the distal SVC. IMPRESSION: Tip of PICC lies within the distal SVC. Dictated by: Alexis Eng M.D. on 06/13/2017 at 19:13 Approved by: Alexis Eng M.D. on 06/13/2017 at 19:13
[2017-06-13] MEDS ORDERED: Norepineph 8,000 mCg/250 mL NS 8,000 MCG in IV Premix 1 EACH IV SCH (20:28)
[2017-06-13 21:32] LABS: Magnesium 2.5 mg/dL (1.6-2.6); Phosphorus 9.3 mg/dL (2.5-4.9)
[2017-06-13] MEDS ORDERED: Insulin Human REGular 300 Unit/3 mL Inj IV ONE (22:20)
[2017-06-14] VITALS (8 sets, daily range): BP systolic 112–155; BP diastolic 44–68; PULSE 58–78; RESP 11–20; O2SAT 94–98
[2017-06-14] MEDS: LORazepam 0.5 mg Tablet PO PRN ×2 (03:15→20:28)
[2017-06-14] MEDS: oxyCODONE-Acetamin 10-325 mg Tablet PO PRN ×3 (03:16→15:54)
[2017-06-14 03:28] LABS: BASOPHILS % (AUTO) 0 % (0-3); EOSINOPHILS % (AUTO) 0 % (0-5); MONOCYTES % (AUTO) 0.6 % (4-12); Mean Corpuscular Hemoglobin 26.3 pg (27.0-35.0); Mean Corpuscular Volume 86.3 fL (81-100); NEUTROPHILS % (AUTO) 92.4 % (40-74); Platelet Count 390 bil/L (150-400)
--- NOTE | 2017-06-14 06:22 | NUR ---
tremors/BP: Pt was very drowsy at start of shift required repeated stimuli to arouse pt. once awake pt responded appropriate and followed commands. Keep trended down and around 2100 levophed was started which during the night was titrated down and turned off at 0600. Pt had tremor like jerking that appeared to be more of a show put on by pt until she received pain medication. Pt also had a extra large loose BM.
[2017-06-14] MEDS: 0.9% Sodium Chloride 1,000 ML IV SCH (06:28)
[2017-06-14] MEDS: cefTRIAXone 2,000 mg/D5W 50 mL IV Minibag Plus IV SCH ×2 (07:40)
[2017-06-14 10:37] LABS: INR 3.24 ratio
--- NOTE | 2017-06-14 13:27 | PCM.PNNEPH ---
Subjective Date of Service Jun 14, 2017 Subjective Patient's renal function continues to improve. She states she feels a bit better and denies any chest pain nausea or vomiting. She continues to have a resting and intention tremors along with some intermittent myoclonic jerks. Her I's and O's from yesterday were not recorded. However in the first 8 hours today she said 2917 in and 2000 now. Her blood pressures have been good with a systolic blood pressure in the 1:30 range. This morning her sodium is 140, potassium 5.8, chloride 103, bicarbonate 20, BUN and creatinine were 70 and 3.1 eosinophils were negative and her urine is growing gram-negative rods. Exam Vital Signs Vital Sign - Last Date Time Temp Pulse Resp B/P Pulse Ox O2 Delivery O2 Flow Rate FiO2 06/14/17 13:16 36.9 68 20 139/66 96 Room Air 06/14/17 08:00 3.00 Intake and Output 06/13/17 06/13/17 06/14/17 Cumulative From/Thru 15:00 23:00 07:00 06/13/17 13:01 - 06/14/17 06:31 Intake Total 1000 ml 200 ml 2917 ml 4117 ml Output Total 2000 ml 2000 ml Balance 1000 ml 200 ml 917 ml 2117 ml Intake Oral 200 ml 520 ml 720 ml IV Total 1000 ml 2397 ml 3397 ml Output Urine Total 2000 ml 2000 ml # Bowel Movements 1 1 Exam Neck supple without adenopathy, thyromegaly, or jugular venous distention. Lungs are clear to auscultation. Heart is regular and rhythmical with a soft systolic murmur. Abdomen is soft without tenderness rebound guarding masses or hepatosplenomegaly. She is not sure any evidence of any clubbing, cyanosis, or edema. Lab and Diagnostics Result Diagram: 06/14/17 0320 06/14/17 0320 Plan Impression Impression #1 resolving acute kidney injury secondary to medication and dehydration #2 hyperkalemia which is resolving #3 metabolic acidosis which is resolving. #4 hypertension with hypertensive heart disease and hypertensive nephrosclerosis. Recommendations #1 the pulmonary renal ultrasound was a questionable mass in the morning of the kidneys however and a previous CT scan and this did not show any evidence of any mass. This may be an acoustic shadow or possible angiomyolipoma. I would like to continue her current medical therapy. Continue to follow her lab. Perez Bajwa DO Jun 14, 2017 13:27
[2017-06-14 14:53] LABS: Unsaturated Iron Binding 355.7 ug/dL
[2017-06-14] MEDS ORDERED: NEOSPORIN TOPICAL PRN (17:40)
--- NOTE | 2017-06-14 17:40 | NUR ---
Diarrhea.. Pt had ongoing loose stools this am but this has resolved since 1200. Taking diet well without any nausea or vomiting. UOP has been QS. Pt has had ongoing c/o headache but has been able to tolerate activity and has been awake all of shift. Med with percocet and morphine with minimal relief given. Dr Nova updated.
--- NOTE | 2017-06-14 17:48 | DRSVH ---
[facility] [address] [place] [address] Echocardiogram Report Name: JESSI MOREJON LStudy Date: 06/14/2017 Height: 61 in Hospital Exam Location: [facility] Weight: 181 lb Gender: Female BSA: 1.8 m2 : 1955 Age: 62 yrs BP: 155/63 mmHg Reason For Study: Hypotension, KE Ordering Physician: Performed By: José Johnson Referring Physician: ANGEL NASSAR Interpretation Summary The left ventricle is normal in size. The ejection fraction is estimated to be 60-65%. Left ventricular wall motion is normal. The right ventricle is normal in size, thickness and function. Pulmonary artery pressures cannot be estimated because of the lack of a measurable TR jet velocity. The left atrium is moderately dilated. Right atrial size is normal. The ascending aorta is mildly enlarged which has increased. There is no significant valvular heart disease. Otherwise, compared to the prior echo report on 07/12/2014, there is no significant change. Procedure: A two-dimensional transthoracic echocardiogram with color flow and Doppler was performed. The study quality was technically adequate. Comparison is made with the echocardiogram of 07/12/14. The patient was in normal sinus rhythm during the exam. Left Ventricle: The left ventricle is normal in size. There is normal left ventricular wall thickness. The ejection fraction is estimated to be 60-65%. Left ventricular wall motion is normal. Diastolic function could not be accurately assessed due to contradictory data. Right Ventricle: The right ventricle is normal in size, thickness and function. Atria: The left atrium is moderately dilated. Right atrial size is normal. The interatrial septum is intact with no evidence for an atrial septal defect. Mitral Valve: The mitral valve leaflets appear borderline thickened, but open well. There is mild to moderate mitral annular calcification. There is no mitral regurgitation noted. Aortic Valve: The aortic valve is trileaflet. The aortic valve opens well. There is no aortic valve stenosis. There is trace aortic regurgitation. Tricuspid Valve: The tricuspid valve is not well visualized, but is grossly normal. Pulmonary artery pressures cannot be estimated because of the lack of a measurable TR jet velocity. Pulmonic Valve: The pulmonic valve leaflets are thin and pliable; valve motion is normal. There is a trace or physiologic amount of pulmonic regurgitation. There is no significant valvular heart disease. Great Vessels: The aortic root is normal size. The ascending aorta is mildly enlarged. The pulmonary artery is normal size. The IVC is dilated (diameter is greater than 2.1 cm) yet it collapses greater than 50% with a sniff. This suggests a right atrial pressure of 8 mm Hg. Pericardium/ Pleura There is no pericardial effusion. There is no pleural effusion. MMode/2D Measurements & Calculations LVIDd: 4.2 cm RA long axis LVOT diam LVIDs: 2.2 cm LA A2 area: 24.1 cm FS: 47.4 % LA A4 area: 23.1 cm RA area AoV Opening EPSS: 0.17 cm LA length (vol): 6.1 cm IVSd: 0.91 cm LA vol: 77.3 ml : 14.5 cm Ao root diam LVPWd: 0.97 cm LA vol index RA vol : 36.7 ml asc Aorta RA Diam: 3.3 cm IVC diam: 2.6 cm : 20.3 mm2 LV loya. diameter/BSA LV sys. diameter/BSA RVD1 (basal) TAPSE: 2.0 cm (cm/m^2): 2.3 (cm/m^2): 1.2 Doppler Measurements & Calculations Ao V2 max MV E max tonny MV E/A: 0.89 PA V2 max : 200.8 cm/sec : 126.4 cm/sec Med Peak E' Tonny : 102.1 cm/sec Ao max P.1 mmHg MV A max tonny PA mean PG Ao mean P.9 mmHg : 142.5 cm/sec E/E' med: 20.0 : 2.4 mmHg LVOT Max Tonny MVA(VTI): 1.8 cm2 Lat Peak E' Tonny : 139.1 cm/sec SHANNAN(I,D): 1.9 cm E/E' lat: 17.2 sev ratio: 0.71 E/e' average MV V2 mean Ao V2 mean LV V1 max PG PA V2 mean : 84.5 cm/sec : 142.4 cm/sec : 73.9 cm/sec MV mean P.5 mmHg Ao V2 VTI: 45.3 cmLV V1 VTI: 32.2 cm PA pr(Accel) MV V2 VTI: 47.3 cm SHANNAN(V,D): 1.9 cm2 : 16.7 mmHg MV dec time: 0.28 sec SHANNAN indexed to BSA (cm^2/m^2): 1.1 Reading Physician:PM
--- NOTE | 2017-06-14 18:02 | NUR ---
Social Work-Initial Assessment/Multidisciplinary Rounds Data:EMR Reviewed. Pt is a 62 y/o female who was admitted on 06/13/17 for hyper potassium, acute renal failure per H&P. Pt's insurance is [facility] and PCP is Surya Gary MD. Pt's readmission score is not listed at this time. Pt discussed in multidisciplinary rounds, pt is likely to d/c in 2-3 days, potentially Saturday. No d/c needs identified in rounds but SW will R/O HH prior to d/c. SW met with pt at [facility] to discuss discharge planning, SW role explained. H&P reports inconsistent lucidity but pt was alert and oriented x3 during this discussion. Pt resides at home with her son and daughter in law in a 2 story home, pt is able to stay on one level of the house. Pt's son is [place], . Pt uses a walker (unless she has tremors, then she uses a wheelchair) and does not drive any longer. Pt has [facility] hospital history and SNF history at [facility]. Pt reports she was just discharged from [facility] PT services and is not open at this time. Pt has no penitentiary care insurance or VA benefits. SW discussed DPOA/ advanced directive, pt's advance directive for CPR is on file. Pt has anxiety and bipolar disorder at baseline. Pt sees local psychologist, but reports not seeing her for a while. Pt feels that her anxiety is well managed at this time. Pt confirms that her son or other family member will provide transport home at discharge. SW provided phone number and plan on white board in room. Discharge planning checklist provided to pt at bedside. SW will continue to follow. Assessment: Pt who is independent with ADLs and self-care with minimal assistance. Plan: Pt likely to discharge home when medically stable, family to transport via POV. SW will continue to follow. KYARA Red[place] Addendum: 06/14/17 at 1808 by ANTHONY COREA Amended: Links added.
[2017-06-14] MEDS ORDERED: ALPRAZolam 0.5 mg Tablet PO PRN (18:30)
[2017-06-14] MEDS ORDERED: Non-Formulary Medication (oxyCODONE 10 MG) PO PRN (18:30)
--- NOTE | 2017-06-14 18:53 | PCM.PNMED ---
Subjective Date of Service Jun 14, 2017 Subjective Patient is a 62-year-old female with a medical history significant for hypertension, bipolar w/ ted, history of thrombophlebitis,GI bleed, CVA, and right carotid stenosis presented with UTI, KE with hyperkalemia and was admitted to the ICU. Today, we stepped her down from ICU. Her renal function continues to improve. She notes that she feels much better compared to when she originally presented. She is complaining of a headache and she believes that it is due to her tremors and myoclonic jerks, which she says she'd had for several months and has been evaluated by neurologist Dr. Crain. Overnight, her blood pressures began to improve with fluid resuscitation and norepi drip. Norepi was discontinued in the morning. On ROS, she denies visual changes, chest pain, SOB, nausea, vomiting, abdominal pain. Exam Vital Signs Vital Sign - Last Date Time Temp Pulse Resp B/P Pulse Ox O2 Delivery O2 Flow Rate FiO2 06/14/17 16:47 37.3 67 14 155/68 98 Room Air 06/14/17 08:00 3.00 Intake and Output 06/13/17 06/13/17 06/14/17 Cumulative From/Thru 15:00 23:00 07:00 06/13/17 13:01 - 06/14/17 06:31 Intake Total 1000 ml 200 ml 2917 ml 4117 ml Output Total 2000 ml 2000 ml Balance 1000 ml 200 ml 917 ml 2117 ml Intake Oral 200 ml 520 ml 720 ml IV Total 1000 ml 2397 ml 3397 ml Output Urine Total 2000 ml 2000 ml # Bowel Movements 1 1 Exam General: Patient is lying comfortably on bed, AAOX3, not in acute distress, cooperative and pleasant. HEENT: head normocephalic and atraumatic, PERRLA, EOMI, no scleral icterus, noninjected conjunctiva Neck: neck supple, non-tender, no lymphadenopathy, trachea midline, no JVD CV: regular rate and rhythm, s1 and s2 heard, no murmur, and equal bilaterally, no rubs murmurs or gallops, no edema Lungs: Clear to auscultation bilaterally, no wheezes, rales or rhonchi, no increased work of breathing Abdomen: normoactive bowel sounds on 4Q, soft, non-distended, non-tender to palpation, no organomegally, Skin: warm and dry, laceration on right side of forehead with stitches, healing properly Musculoskeletal: 3/5 UE and LE strength bilaterally, full ROM bilaterally Neuro: Grossly neurologically intact, cranial nerves II through XII intact, head tremors and myoclonic jerks of all extremities Psych: Normal mood and affect IVs and Medications IV Fluids 150 mL normal saline Medications Reviewed: Medications were reviewed in detail Medications High-risk medications include warfarin, morphine, oxycodone Lab and Diagnostics Laboratory Tests Test 06/13/17 21:05 06/14/17 03:20 06/14/17 10:10 Sodium Level 136mEq/L (134-144) 140mEq/L (134-144) Potassium Level 7.4mEq/L (3.5-5.2) 5.8mEq/L (3.5-5.2) Chloride Level 98mEq/L (97-108) 103mEq/L (97-108) Carbon Dioxide Level 19mmol/L (18-29) 20mmol/L (18-29) Blood Urea Nitrogen 78mg/dL (8-27) 70mg/dL (8-27) Creatinine 6.57mg/dL (0.57-1.00) 3.81mg/dL (0.57-1.00) Estimat Glomerular Filtration Rate 9mL/min (>59) 17mL/min (>59) Glucose Level 158mg/dL (60-99) 188mg/dL (60-99) Calcium Level 8.0mg/dL (8.5-10.1) 8.5mg/dL (8.5-10.1) Phosphorus Level 9.3mg/dL (2.5-4.9) Magnesium Level 2.5mg/dL (1.6-2.6) White Blood Count 9.9th/mm3 (3.8-10.1) Red Blood Count 3.50mil/mm3 (3.90-5.20) Hemoglobin 9.2g/dL (12.0-15.6) Hematocrit 30.2% (35.0-46.0) Mean Corpuscular Volume 86.3fL (81-100) Mean Corpuscular Hemoglobin 26.3pg (27.0-35.0) Mean Corpuscular Hemoglobin Concent 30.5% (32.0-37.0) Red Cell Distribution Width 15.7% (12.3-15.4) Platelet Count 390bil/L (150-400) Neutrophils (%) (Auto) 92.4% (40-74) Lymphocytes (%) (Auto) 6.8% (14-46) Monocytes (%) (Auto) 0.6% (4-12) Eosinophils (%) (Auto) 0% (0-5) Basophils (%) (Auto) 0% (0-3) Iron Level 18ug/dL (35-150) Total Iron Binding Capacity 374ug/dL (250-450) Percent Iron Saturation 5%sat (15-50) Unsaturated Iron Binding 355.7ug/dL Total Bilirubin 0.2mg/dL (0.0-1.2) Aspartate Amino Transf (AST/SGOT) 20U/L (0-50) Alanine Aminotransferase (ALT/SGPT) 18U/L (0-32) Alkaline Phosphatase 123U/L (25-165) Total Protein 6.2g/dL (6.4-8.4) Albumin 3.7g/dL (3.4-5.0) Prothrombin Time 35.5sec (8.1-12.5) Prothromb Time International Ratio 3.24ratio Microbiology 06/13/17 Blood Culture - Preliminary, Resulted NO GROWTH AFTER 24 HOURS 06/13/17 MRSA (PCR) - Final, Complete 06/13/17 Urine Culture - Preliminary, Resulted Result Diagram: 06/14/17 0320 06/14/17 0320 Microbiology Urine culture Microbiology RINA CULT URINE Preliminary 06/14/17 PRELIMINARY ID GRAM NEGATIVE AMPARO ID AND SENS TO FOLLOW COLONY COUNT/QUANTITY >100,000 CFU/ml X-Rays, CTs and MRIs Brain CT IMPRESSION: No acute intracranial disease process. Dictated by: Brittney Figueroa MD, PhD on 06/13/2017 at 14:39 Approved by: Brittney Figueroa MD, PhD on 06/13/2017 at 14:44 Chest x-ray IMPRESSION: No acute cardiopulmonary disease. Dictated by: Steve Chery M.D. on 06/13/2017 at 14:19 Approved by: Steve Chery M.D. on 06/13/2017 at 14:21 Soft tissue neck x-ray IMPRESSION: No acute radiographic findings. If further characterization of the soft tissues of the neck is warranted, soft tissue neck CT is recommended. Dictated by: Elizabeth Molina M.D. on 06/13/2017 at 13:59 Approved by: Elizabeth Molina M.D. on 06/13/2017 at 14:00 12-lead ECG EKG shows sinus rhythm heart rate 68. no T wave changes Additional Diagnostics Renal ultrasound IMPRESSION: A source of renal insufficiency is not found. A Hill catheter fully empties the bladder lumen. The current ultrasound shows imaging findings suggestive of a mass measuring up to 2.5 cm in dimension, involving the middle third cortex. However, recent CT scanning is not shown a mass in this area. Therefore I recommend obtaining a followup ultrasound in 7-10 days to further assess the right kidney has a single limited organ study. The appearance may represent a false positive diagnosis. There may be a small several millimeter angiomyolipoma in that same area. Please refer to the prior ultrasound from 04/12/15 discussed above. Dictated by: Alexis Eng M.D. on 06/13/2017 at 18:49 Approved by: Alexis Eng M.D. on 06/13/2017 at 18:53 Assessment & Plan Patient is a 62-year-old female with a medical history significant for hypertension, bipolar w/ ted, history of thrombophlebitis,GI bleed, CVA, and right carotid stenosis who presented with UTI,KE with hyperkalemia and was initially admitted to the ICU. Today, her renal function and blood pressure have continued to improve and we were able to step her down from the ICU. Patient's renal function continues to improve. She states she feels a bit better and denies any chest pain nausea or vomiting. She continues to have a resting and intention tremors along with some intermittent myoclonic jerks. Her I's and O's from yesterday were not recorded. However in the first 8 hours today she said 2917 in and 1999 now. Her blood pressures have been good with a systolic blood pressure in the 1:30 range. This morning her sodium is 140, potassium 5.8, chloride 103, bicarbonate 20, BUN and creatinine were 70 and 3.1 eosinophils were negative and her urine is growing gram-negative rods. Acute kidney injury, present on admission, resolving -Likely secondary to dehydration, and UTI. Could also be drug-induced by nitrofurantoin but less likely since the patient last took this medication in March -In the ED, BUN was 75 and creatinine 7.8. This morning, BUN and creatinine were 70 and 3.1 -Renal US shows no source of renal insufficiency is found. However, the current ultrasound shows imaging findings suggestive of a mass measuring up to 2.5 cm in dimension, involving the middle third cortex. However, recent CT scanning is not shown a mass in this area. Radiologist recommends obtaining a followup ultrasound in 7-10 days to further assess the right kidney has a single limited organ study. -[place] Turner Dr. Bajwa has been consulted and is following the patient. -Avoid nephrotoxic meds. -Hold home meds lisinopril-HCTZ -Patient has received fluid resuscitation. Currently on 150 ml NS Hyperkalemia, present on admission, ongoing -Likely secondary to KE -No EKG changes, no peak T waves -Received insulin, calcium gluconate, albuterol, and Kayexalate -Repeat BMP, telemetry -Today Potassium has decreased from 7.9 to 5.8 Acute Urinary Tract Infection, present on Admission, ongoing -evident on UA -Urine culture is growing gram-negative rods -Patient has received 2 g ceftriaxone IV daily -Will decrease ceftriaxone to 1 g starting tomorrow -Today, patient remains afebrile, HR 78, BP 132/62 -WBC has trended down from 12.2 to 9.9 Metabolic acidosis, present on admission, resolving - likely due to acute kidney injury -anion gap on admission was 21 -Fluid resuscitation as stated above Altered mental status, present on admission, improving -likely to secondary to uremia and hypotension -CT-Head negative -Monitor, low threshold to MRI head -Improved today. Patient Alert, awake and oriented X3 Hyperglycemia, present on admission, ongoing -Most recent Hgb A1C during admission was 5.5 -Consider low dose correctional scale Lispro Hypotension, present on admission, resolved -Likely due to infection and dehydration -Patient was on norepi drip, which was discontinued this morning -Patient is now hypertensive -Consider Labetalol prn for bp >160 -Follow up with ECHO results Chronic medical condition History of Right upper extremeity thrombophlebitis -INR 2.55 -Warfarin ordered per pharm dosing Hypertension, chronic, ongoing -holding home meds lisinopril-HCTZ due to KE -Consider Labetolol prn if BP >160 -Monitor BP Bipolar/manic/depression -holding duloxetine for now given risk for seizure -lorazepam 0.5mg BID PRN for anxiety Right back pain -holding home gabapentin -Start Oxycodone-APAP 10-325mg Q6H for pain and withdraw CODE STATUS full code DVT prophylaxis warfarin Patient Status: Patient is admitted under inpatient status with expected length of stay GREATER than 2 midnights due to severity of presenting symptoms, risk of adverse event, and complexity of treatment plan. Pain Evaluation: Adequate Pain Control VTE Mechanical Devices: Intermittant Pneumatic CD Resuscitation Status: CPR: Attempt Resuscitation Time spent 30 minutes Attending Statement I have seen and evaluated the patient at bedside in addition to directly supervising care provided by resident physician. I agree with above documentation. Melony Castelan DO Jun 14, 2017 18:53 Jin Chisholm DO Jun 15, 2017 08:21
[2017-06-14] MEDS ORDERED: Glucose 40% Oral Gel 15 Gm Tube PO PRN (22:25)
[2017-06-15 02:34] VITALS: BP 116/45; PULSE 59; RESP 15; O2SAT 96
--- NOTE | 2017-06-15 05:43 | NUR ---
Anxiety/Restless Legs Pt stated anxiety in the early hours of the morning that was unrelieved by Ativan PO. Pt given Xanax with good effect. Pt slept well for the remainder of the night.
[2017-06-15 05:44] VITALS: PULSE 72
[2017-06-15 06:09] LABS: BASOPHILS % (AUTO) 0.5 % (0-3); EOSINOPHILS % (AUTO) 1.2 % (0-5); MONOCYTES % (AUTO) 7.7 % (4-12); Mean Corpuscular Hemoglobin 25.8 pg (27.0-35.0); Mean Corpuscular Volume 86.6 fL (81-100); Platelet Count 270 bil/L (150-400)
[2017-06-15 06:41] LABS: INR 1.95 ratio
[2017-06-15] MEDS ORDERED: cefTRIAXone Inj 1,000 MG in Dextrose 5% Minibag Plus 50 ML IV SCH (07:30)
[2017-06-15 08:00] VITALS: BP 163/70; PULSE 53; RESP 16
[2017-06-15] MEDS: Insulin LISPRO 300 Unit/3 mL Inj SUBQ SCH ×2 (08:00→12:00)
[2017-06-15 08:56] VITALS: PULSE 60
--- NOTE | 2017-06-15 10:57 | PCM.DC.MED ---
Discharge Summary Date of Service Jun 15, 2017 Dates of Hospitalization Date of Hospital Admission Jun 13, 2017 at 15:15 Date of Discharge: Jun 15, 2017 Providers: Admitting Physician: Jin Chisholm DO Primary Care Physician: Surya Gary MD Attending Physician: Jin Chisholm DO Diagnosis at Time of Discharge Diagnosis at Time of Discharge Acute kidney injury, Resolved Hyper kalemia, resolved Acute urinary tract infection Metabolic acidosis, resolved Altered mental status, resolved Iron Deficiency Anemia Hyperglycemia without the diagnosis of diabetes Hypotension, resolved History of right upper extremity thrombophlebitis Hypertension, chronic Bipolar/ manic/ depression Right back pain Consultations Nephrology was consulted Procedures XRay, CTs & MRIs Brain CT IMPRESSION: No acute intracranial disease process. Dictated by: Brittney Figueroa MD, PhD on 06/13/2017 at 14:39 Approved by: Brittney Figueroa MD, PhD on 06/13/2017 at 14:44 Chest x-ray IMPRESSION: No acute cardiopulmonary disease. Dictated by: Steve Chery M.D. on 06/13/2017 at 14:19 Approved by: Steve Chery M.D. on 06/13/2017 at 14:21 Soft tissue neck x-ray IMPRESSION: No acute radiographic findings. If further characterization of the soft tissues of the neck is warranted, soft tissue neck CT is recommended. Dictated by: Elizabeth Molina M.D. on 06/13/2017 at 13:59 Approved by: Elizabeth Molina M.D. on 06/13/2017 at 14:00 ECG 12 Lead EKG shows sinus rhythm heart rate 68. no T wave changes Cardiac Echo Impression Interpretation Summary The left ventricle is normal in size. The ejection fraction is estimated to be 60-65%. Left ventricular wall motion is normal. The right ventricle is normal in size, thickness and function. Pulmonary artery pressures cannot be estimated because of the lack of a measurable TR jet velocity. The left atrium is moderately dilated. Right atrial size is normal. The ascending aorta is mildly enlarged which has increased. There is no significant valvular heart disease. Otherwise, compared to the prior echo report on 07/12/2014, there is no significant change. Other Diagnostics Renal ultrasound IMPRESSION: A source of renal insufficiency is not found. A Hill catheter fully empties the bladder lumen. The current ultrasound shows imaging findings suggestive of a mass measuring up to 2.5 cm in dimension, involving the middle third cortex. However, recent CT scanning is not shown a mass in this area. Therefore I recommend obtaining a followup ultrasound in 7-10 days to further assess the right kidney has a single limited organ study. The appearance may represent a false positive diagnosis. There may be a small several millimeter angiomyolipoma in that same area. Please refer to the prior ultrasound from 04/12/15 discussed above. Dictated by: Alexis Eng M.D. on 06/13/2017 at 18:49 Approved by: Alexis Eng M.D. on 06/13/2017 at 18:53 Brief History From H&P of Dr. Ayoub on 06/13/17 Per patient, states increasing neck pain with respiratory difficulty and headache in addition to diaphoresis. Patient states having urinary symptoms were over a week, increase in urinary frequency and cloudiness of the urine. Last Saturday she is also reported having significant diarrhea and vomiting. And yesterday, patient states that she had a ground-level fall, lacerated her head and thus, went to urgent care for further evaluation and received stitches. She believes this is due to her unsteadiness and increasing tremors. Patient denies any fevers, chills. Patient was unable to tell me whether she received a new medication that included antibiotics for the urinary tract infection. Patient is unreliable historian. She has periods of waxing waning lucidity. Medical records at [facility], patient was recently started on nitrofurantoin. In the ED, blood pressure was 70/40's, altered mental status, CT of the head was done, unremarkable. As was x-ray of the neck and chest, unremarkable. Blood work came back with critical values, BUNs 75, creatinine 7.8, and potassium 7.9. Anion gap of 21, WBC 12.2 with neutrophil 35.5%, UA showing WBC of greater than 50, urine leukocyte esterase large, and heavy bacteria. Patient was given albuterol, slender, calcium gluconate, and also Kayexalate. Nephrology Dr. Bajwa was consulted and recommended the patient continue to receive Kayexalate in addition to obtaining US kidney, and start NS 120cc/hr. Separately, for her dyslipidemia, she received racemic epinephrine, Solu-Medrol , and also albuterol which seemed to improve her symptoms. Hospital Course Patient is a 62-year-old female with a medical history significant for hypertension, bipolar w/ ted, history of thrombophlebitis,GI bleed, CVA, and right carotid stenosis who presented with UTI,KE with hyperkalemia and was initially admitted to the ICU. In the ED, blood work came back with critical values, BUNs 75, creatinine 7.8, and potassium 7.9. Anion gap of 21, WBC 12.2 with neutrophil 35.5%, UA showing WBC of greater than 50, urine leukocyte esterase large, and heavy bacteria. Blood pressure was 70/40's and she had altered mental status, CT of the head was done, unremarkable. As was x-ray of the neck and chest, unremarkable. Patient was given albuterol, slender, calcium gluconate, and also Kayexalate. Nephrology was consulted and recommended the patient continue to receive Kayexalate in addition to obtaining US kidney, and start NS 120cc/hr. She was started on a norepi drip until her blood pressure stabilized. In addition, she was treated with Ceftriaxone and will go home with Keflex. Patient's renal function improved. Today, pertinent labs include BUN40, CR. 0.91 and Potassium at 4.9. Acute kidney injury, present on admission, resolved -Likely secondary to dehydration, and UTI. Could also be drug-induced by nitrofurantoin but less likely since the patient last took this medication in March -In the ED, BUN was 75 and creatinine 7.8. This morning, BUN and creatinine were 70 and 3.1 -Renal US shows no source of renal insufficiency is found. However, the current ultrasound shows imaging findings suggestive of a mass measuring up to 2.5 cm in dimension, involving the middle third cortex. However, recent CT scanning is not shown a mass in this area. Radiologist recommends obtaining a followup ultrasound in 7-10 days to further assess the right kidney has a single limited organ study. -Data Analysis Assistant Dr. Bajwa has been consulted and is following the patient. -Avoid nephrotoxic meds. -Hold home meds lisinopril-HCTZ -Patient has received fluid resuscitation. Hyperkalemia, present on admission, resolved -Likely secondary to KE -No EKG changes, no peak T waves -Received insulin, calcium gluconate, albuterol, and Kayexalate -Today Potassium has decreased from 7.9 to 4.9 Acute Urinary Tract Infection, present on Admission, ongoing -evident on UA -Urine culture is growing gram-negative rods -Patient has received 2 g ceftriaxone IV daily -Will decrease ceftriaxone to 1 g starting tomorrow -Today, patient remains afebrile, HR 78, BP 132/62 -WBC has trended down from 12.2 to 9.9 Metabolic acidosis, present on admission, resolving - likely due to acute kidney injury -anion gap on admission was 21 -Fluid resuscitation as stated above Altered mental status, present on admission, resolved -likely to secondary to uremia and hypotension -CT-Head negative -Monitor, low threshold to MRI head -Improved today. Patient Alert, awake and oriented X3 Hyperglycemia, present on admission, ongoing -Most recent Hgb A1C during admission was 5.5 -Consider low dose correctional scale Lispro Hypotension, present on admission, resolved -Likely due to infection and dehydration -Patient was on norepi drip, which was discontinued this morning -Patient is now hypertensive -Consider Labetalol prn for bp >160 -Follow up with ECHO results Iron deficiency Anemia, present on admission -give her 125 mg of venofer and 100 mg Aranesp prior to d/c today -Get an outpatient evaluation of her GI tract for possible source of the iron deficiency anemia. Chronic medical condition History of Right upper extremeity thrombophlebitis -INR 2.55 -Warfarin ordered per pharm dosing Hypertension, chronic, ongoing -holding home meds lisinopril-HCTZ due to KE -Consider Labetolol prn if BP >160 -Monitor BP Bipolar/manic/depression -holding duloxetine for now given risk for seizure -lorazepam 0.5mg BID PRN for anxiety Right back pain -holding home gabapentin -Gave Oxycodone-APAP 10-325mg Q6H for pain and withdraw CODE STATUS full code DVT prophylaxis warfarin Exam Vital Signs (Last) Date Time Temp Pulse Resp B/P Pulse Ox O2 Delivery O2 Flow Rate FiO2 06/15/17 08:56 60 06/15/17 02:34 36.8 15 116/45 96 Room Air 06/14/17 08:00 3.00 Exam General: Patient is lying comfortably on bed, AAOX3, not in acute distress, cooperative and pleasant. HEENT: head normocephalic and atraumatic, PERRLA, EOMI, no scleral icterus, noninjected conjunctiva Neck: neck supple, non-tender, no lymphadenopathy, trachea midline, no JVD CV: regular rate and rhythm, s1 and s2 heard, no murmur, and equal bilaterally, no rubs murmurs or gallops, no edema Lungs: Clear to auscultation bilaterally, no wheezes, rales or rhonchi, no increased work of breathing Abdomen: normoactive bowel sounds on 4Q, soft, non-distended, non-tender to palpation, no organomegally, Skin: warm and dry, laceration on right side of forehead with stitches, healing properly Musculoskeletal: 3/5 UE and LE strength bilaterally, full ROM bilaterally Neuro: Grossly neurologically intact, cranial nerves II through XII intact, head tremors Psych: Normal mood and affect Test 06/13/17 13:38 06/13/17 15:20 06/13/17 21:05 06/14/17 03:20 Lactic Acid Level 0.8mmol/L (0.4-2.0) Troponin T < 0.010ug/L (0.0-0.011) Pro-B-Type Natriuretic Peptide 681.8pg/mL (0-287) Urine Color Dark yellow (YELLOW) Urine Appearance Cloudy (CLEAR,HAZY) Urine pH 6.0 (5.0-8.0) Urine Specific Loraine 1.015 (1.003-1.035) Urine Protein 30mg/dL (NEG,TRACE) Urine Glucose (UA) Negativemg/dL (NEGATIVE) Urine Ketones Tracemg/dL (NEGATIVE) Urine Occult Blood Negative (NEGATIVE) Urine Nitrite Negative (NEGATIVE) Urine Bilirubin Negative (NEGATIVE) Urine Urobilinogen Normalmg/dL (NORMAL) Urine Leukocyte Esterase Large (NEGATIVE) Urine RBC 0-2/hpf (0-2) Urine WBC >50/hpf (0-5) Urine Epithelial Cells Occasional/hpf (NONE-MOD) Urine Crystals None seen (NONE SEEN) Urine Bacteria Many/hpf (NONE-FEW) Urine Hyaline Casts None/lpf (NONE) Urine Granular Casts None seen (NONE SEEN) Urine Waxy Casts None seen (NONE SEEN) Urine Red Blood Cell Casts None seen (NONE SEEN) Urine White Blood Cell Casts None seen (NONE SEEN) Urine Mucus None seen (None Seen) Urine Trichomonas None seen (NONE SEEN) Urine Yeast None (NONE SEEN) Urinalysis Comment None Urine Culture Reflexed Indicated Phosphorus Level 9.3mg/dL (2.5-4.9) Magnesium Level 2.5mg/dL (1.6-2.6) Hemoglobin A1c 5.5% (4.8-5.6) Iron Level 18ug/dL (35-150) Total Iron Binding Capacity 374ug/dL (250-450) Percent Iron Saturation 5%sat (15-50) Unsaturated Iron Binding 355.7ug/dL Test 06/15/17 05:50 White Blood Count 7.4th/mm3 (3.8-10.1) Red Blood Count 3.22mil/mm3 (3.90-5.20) Hemoglobin 8.3g/dL (12.0-15.6) Hematocrit 27.9% (35.0-46.0) Mean Corpuscular Volume 86.6fL (81-100) Mean Corpuscular Hemoglobin 25.8pg (27.0-35.0) Mean Corpuscular Hemoglobin Concent 29.7% (32.0-37.0) Red Cell Distribution Width 15.4% (12.3-15.4) Platelet Count 270bil/L (150-400) Neutrophils (%) (Auto) 59.0% (40-74) Lymphocytes (%) (Auto) 31.5% (14-46) Monocytes (%) (Auto) 7.7% (4-12) Eosinophils (%) (Auto) 1.2% (0-5) Basophils (%) (Auto) 0.5% (0-3) Prothrombin Time 21.2sec (8.1-12.5) Prothromb Time International Ratio 1.95ratio Sodium Level 143mEq/L (134-144) Potassium Level 4.9mEq/L (3.5-5.2) Chloride Level 106mEq/L (97-108) Carbon Dioxide Level 27mmol/L (18-29) Blood Urea Nitrogen 40mg/dL (8-27) Creatinine 0.91mg/dL (0.57-1.00) Estimat Glomerular Filtration Rate 89mL/min (>59) Glucose Level 92mg/dL (60-99) Calcium Level 8.5mg/dL (8.5-10.1) Total Bilirubin 0.2mg/dL (0.0-1.2) Aspartate Amino Transf (AST/SGOT) 13U/L (0-50) Alanine Aminotransferase (ALT/SGPT) 16U/L (0-32) Alkaline Phosphatase 98U/L (25-165) Total Protein 5.6g/dL (6.4-8.4) Albumin 3.2g/dL (3.4-5.0) Microbiology Results Microbiology [facility] CULT URINE Final 06/15/17-0716 Organism 1 KLEBSIELLA PNEUMONIAE U COLONY COUNT/QUANTITY >100,000 CFU/ml Cefazolin-predicts results for the oral agents, cefaclor,cefdinir, cefpodoximen, cefprozil, cefuroximne axetil, cephalexin and loracarbed when used for therapy of uncomplicated UTI's due to E. coli, K. pneumoniae, and Proteus mirabilis. Cefpodoxime, cefdinir and cefuroxime axetil may be tested individually because some isolates may be susceptible to these agents while testing resistant to cefazolin. (CLSI V432-V85 pg 53) 1. KLEBSIELLA PNEUMONIAE M.I.C Interp --------- ------ * AMOXICILLIN/CLAVULATE <=2 S * AMPICILLIN >=32 R * CEFAZOLIN (CEPHALOSPORIN) UTI 4 S * CEFEPIME <=1 S * CEFTRIAXONE <=1 S * CEFUROXIME SODIUM 2 S * CIPROFLOXACIN <=0.25 S * ERTAPENEM <=0.5 S * GENTAMICIN <=1 S * IMIPENEM <=1 S * LEVOFLOXACIN <=0.12 S * NITROFURANTOIN 64 I * TETRACYCLINE <=1 S * TOBRAMYCIN <=1 S * TRIMETHOPRIM/SULFAMETHOXAZOLE <=20 S Discharge Medications Discharge Medications Cephalexin (Keflex) 500 Mg Capsule 500 MG PO BID Prescribed by: Casi PATEL Duloxetine (Duloxetine) 60 Mg Capsule.dr 60 MG PO DAILY (Reported) Gabapentin (Gabapentin) 800 Mg Tablet 800 MG PO TID (Reported) Lisinopril / HCTZ 10-12.5 mg (Lisinopril / HCTZ 10-12.5 mg) 1 Each Tablet 1 EACH PO DAILY (Reported) Prazosin (Prazosin) 1 Mg Capsule 2 MG PO HS (Reported) Warfarin Sodium (Warfarin Sodium) 5 Mg Tablet 5 MG PO DIRECTED (Reported) As needed Acetaminophen (Acetaminophen) 325 Mg Tablet 650 MG PO Q4H PRN PRN For Pain ( Reported) Alprazolam (Xanax) 0.5 Mg Tablet 0.5 MG PO TID PRN PRN For Anxiety Prescribed by: JUSTEN MC MD Docusate Sodium (Docusate Sodium) 250 Mg Capsule 250 MG PO DAILY PRN PRN For Constipation (Reported) Nitroglycerin SL (Nitrostat) 0.4 Mg Tab.subl 0.4 MG SL Q5MIN PRN PRN For Chest Pain (Reported) oxyCODONE (oxyCODONE) 10 Mg Tablet 10 MG PO Q4H PRN PRN For Pain (Reported) Additional med instructions We are adding Keflex (Cephalexin) 500 mg by mouth twice daily to continue treating your urinary tract infection Followup Plan Disposition: Patient will discharge to home Follow-up plan Please follow up with your primary care provider within a week to evaluate your kidney function, to further assess the kidney mass that was found in your kidney ultrasound , and to evaluate the source of your iron deficiency anemia Discharge Diet: No restrictions Discharge Activity: No restrictions Patient Instructions When you came into the hospital, we found that you had a urinary tract infection. We treated you with antibiotics and we are sending you home with more antibiotics, Keflex to take for 5 more days as directed. We found that your blood pressure was low and your kidney wasn't working as well as it should , probably because you were dehydrated and you had a urinary tract infection at the same time. We gave you lot of fluids to hydrate and medications to help with the blood pressure. We also found that your potassium was very high so we gave you medications to lower that. Your kidney function has now normalized and your potassium is also normal. Please follow up with your primary care provider within a week to evaluate your kidney function, to further assess the kidney mass that was found in your kidney ultrasound , and to evaluate the source of your iron deficiency anemia Follow-up Provider: Surya Gary MD Follow-up with PCP in: 1 week Time spent 40 minutes Attending Statement I have seen and evaluated the patient at bedside in addition to directly supervising care provided by resident physician Dr Castelan. I agree with above documentation. copies to: Surya Gary MD, Alexa N DO Jun 15, 2017 10:57 Jin Chisholm DO Jun 15, 2017 13:13
[2017-06-15] MEDS ORDERED: Darbepoetin Alfa 100 mCg/0.5 mL Inj SUBQ ONE (11:15)
[2017-06-15] MEDS ORDERED: Ferric Sod Gluc Complex Inj 125 MG in 0.9% Sodium Chloride 100 ML IV ONE (11:15)
--- NOTE | 2017-06-15 11:18 | PCM.PNNEPH ---
Subjective Date of Service Jun 15, 2017 Subjective The patient's renal function is back to normal. She states that she feels considerably better and denies any nausea, vomiting, chest pain or shortness of breath. Her blood pressure is good and the last 24-hour she has had 50 1:20 AM and 2900 with 1450 out first 8 hours today. Her hemoglobin remains low at 8.3 and her transferrin saturation was also 5%. Sodium is 133, potassium 4.9, chloride 106, bicarbonate 27, BUN and creatinine were 40 and 0.9 respectively. Exam Vital Signs Vital Sign - Last Date Time Temp Pulse Resp B/P Pulse Ox O2 Delivery O2 Flow Rate FiO2 06/15/17 08:56 60 06/15/17 02:34 36.8 15 116/45 96 Room Air 06/14/17 08:00 3.00 Intake and Output 06/14/17 06/14/17 06/15/17 Cumulative From/Thru 15:00 23:00 07:00 06/13/17 13:01 - 06/15/17 06:48 Intake Total 2203 ml 330 ml 6650 ml Output Total 900 ml 1450 ml 4350 ml Balance 1303 ml -1120 ml 2300 ml Intake Oral 990 ml 300 ml 2010 ml IV Total 1213 ml 30 ml 4640 ml Output Urine Total 900 ml 1450 ml 4350 ml # Bowel Movements 4 3 8 Exam HEENT examination is remarkable for pale sclera and moist mucous membranes. Neck is supple without adenopathy, thyromegaly, or jugular venous distention. Lungs are clear there is some diminished breath sounds in both bases. Heart was regular with soft systolic murmur. Abdomen soft without any tenderness or rebound guarding masses or hepatosplenomegaly. Extremities not show any evidence of any clubbing, cyanosis, or edema. Skin turgor is good. Lab and Diagnostics Result Diagram: 06/15/17 0550 06/15/17 0550 Microbiology Urine culture Microbiology [facility] CULT URINE Preliminary 06/14/17-716 PRELIMINARY ID GRAM NEGATIVE AMPARO ID AND SENS TO FOLLOW COLONY COUNT/QUANTITY >100,000 CFU/ml X-Rays, CTs and MRIs Brain CT IMPRESSION: No acute intracranial disease process. Dictated by: Brittney Figueroa MD, PhD on 06/13/2017 at 14:39 Approved by: Brittney Figueroa MD, PhD on 06/13/2017 at 14:44 Chest x-ray IMPRESSION: No acute cardiopulmonary disease. Dictated by: Steve Chery M.D. on 06/13/2017 at 14:19 Approved by: Steve Chery M.D. on 06/13/2017 at 14:21 Soft tissue neck x-ray IMPRESSION: No acute radiographic findings. If further characterization of the soft tissues of the neck is warranted, soft tissue neck CT is recommended. Dictated by: Elizabeth Molina M.D. on 06/13/2017 at 13:59 Approved by: Elizabeth Molina M.D. on 06/13/2017 at 14:00 12-lead ECG EKG shows sinus rhythm heart rate 68. no T wave changes Cardiac Echo Impressions Interpretation Summary The left ventricle is normal in size. The ejection fraction is estimated to be 60-65%. Left ventricular wall motion is normal. The right ventricle is normal in size, thickness and function. Pulmonary artery pressures cannot be estimated because of the lack of a measurable TR jet velocity. The left atrium is moderately dilated. Right atrial size is normal. The ascending aorta is mildly enlarged which has increased. There is no significant valvular heart disease. Otherwise, compared to the prior echo report on 07/12/2014, there is no significant change. Additional Diagnostics Renal ultrasound IMPRESSION: A source of renal insufficiency is not found. A Hill catheter fully empties the bladder lumen. The current ultrasound shows imaging findings suggestive of a mass measuring up to 2.5 cm in dimension, involving the middle third cortex. However, recent CT scanning is not shown a mass in this area. Therefore I recommend obtaining a followup ultrasound in 7-10 days to further assess the right kidney has a single limited organ study. The appearance may represent a false positive diagnosis. There may be a small several millimeter angiomyolipoma in that same area. Please refer to the prior ultrasound from 04/12/15 discussed above. Dictated by: Alexis Eng M.D. on 06/13/2017 at 18:49 Approved by: Alexis Eng M.D. on 06/13/2017 at 18:53 Plan Impression Impression #1 acute dehydration number to drug-induced acute kidney injury which is resolving #3 acute kidney injury which is resolving secondary to #1 #2 number for hyperkalemia which is resolved #5 metabolic acidosis which is resolved #6 iron deficiency anemia which is being treated and #7 hypertension with hypertensive heart disease and hypertensive nephrosclerosis. Recommendations #1 from my point of view the patient to be discharged today however prior to discharge home would like to give her 125 mg of venofer and 100 mg Aranesp prior to d/c today.. I would strongly urge an outpatient evaluation of her GI tract for possible source of the iron deficiency anemia. Otherwise from my point of view she can be discharged. Perez Bajwa DO Jun 15, 2017 11:18
--- NOTE | 2017-06-15 12:42 | PCM.DIMED ---
Melony Castelan DO 06/15/17 1242: Discharge Instructions Date of Service Jun 15, 2017 Dates of Hospitalization Jun 13, 2017 at 15:15 Discharge Diagnosis Discharge Diagnosis Acute kidney injury, Resolved Hyper kalemia, resolved Acute urinary tract infection Metabolic acidosis, resolved Altered mental status, resolved Iron Deficiency Anemia Hyperglycemia without the diagnosis of diabetes Hypotension, resolved History of right upper extremity thrombophlebitis Hypertension, chronic Bipolar/ manic/ depression Right back pain Medication Instructions Additional med instructions We are adding Keflex (Cephalexin) 500 mg by mouth twice daily to continue treating your urinary tract infection Diet Discharge Diet: No restrictions Activity Discharge Activity: No restrictions Call your provider Call your provider for: Fever or Chills, Shortness of breath, Bleeding, Chest pain, Vomitting, Excessive diarrhea, Weakness (unilateral) Patient Instructions Patient Instructions When you came into the hospital, we found that you had a urinary tract infection. We treated you with antibiotics and we are sending you home with more antibiotics, Keflex to take for 5 more days as directed. We found that your blood pressure was low and your kidney wasn't working as well as it should , probably because you were dehydrated and you had a urinary tract infection at the same time. We gave you lot of fluids to hydrate and medications to help with the blood pressure. We also found that your potassium was very high so we gave you medications to lower that. Your kidney function has now normalized and your potassium is also normal. Please follow up with your primary care provider within a week to evaluate your kidney function, to further assess the kidney mass that was found in your kidney ultrasound , and to evaluate the source of your iron deficiency anemia Follow-up plan Please follow up with your primary care provider within a week to evaluate your kidney function, to further assess the kidney mass that was found in your kidney ultrasound , and to evaluate the source of your iron deficiency anemia Follow-up Provider: Surya Gary MD Follow-up with PCP in: 1 week Jin Chisholm DO 06/15/17 1312: Discharge Instructions Patient Instructions Patient Instructions Low blood levels or Anemia could be a sign of bleeding from the gastrointestinal system. Everyone 50 years or older should have colonoscopy screening for colon cancer. This is strongly recommended at this time especially in the setting of anemia. Discuss referral options with your primary care physician. Attending's Statement Read and agree Melony Castelan DO Jun 15, 2017 12:42 Jin Chisholm DO Jun 15, 2017 13:12
[2017-06-15] MEDS ORDERED: CEPH-512 PO (12:45)
[2017-06-15 12:53] VITALS: BP 162/65; PULSE 46; O2SAT 97
--- NOTE | 2017-06-15 14:30 | NUR ---
Meds.. Pt d/c home with her home meds that were brought in from admit.
--- NOTE | 2017-06-15 16:11 | NUR ---
Social Work: Discharge/Multidisciplinary Rounds D: EMR reviewed. Pt is on day 2 of hospitalization. Pt discussed in multidisciplinary rounds and is medically stable for discharge home today. No SW needs identified, no MD orders received. Pt's discharge discussed with MD - no concerns identified. Per RN, pt to transport home with family today. A: Pt who is independent at baseline and who is open with [facility]. P: Pt discharged home with family via POV. No other needs identified. No MD orders received. KYARA Estrella
--- NOTE | 2017-06-15 16:47 | NUR ---
D/C.. Pt cont to have c/o headache but has been sleeping intermittently after receiving oxycodone. Had one formed stool this am but several loose stools since and slight nausea that was fleeting. Dr Duenas updated. Has been up in the chair and is jamal activity well. Does have low grade temp.. updated. Written for D/C home. D/C with belongings at 1430 accompanied by son.
== END 2017-06-15 14:38 | disposition home health service (06) | DRG 683 ==
LOC: SED 12:53 → CCU 15:15 → PCC 06-14 14:44
PROVIDERS: ADMIT Family Medicine; ATTEND Family Medicine
DX: N17.9 Acute kidney failure, unspecified (principal); N39.0 Urinary tract infection, site not specified; E87.2 Acidosis; E87.5 Hyperkalemia; E86.0 Dehydration; I13.10 Hypertensive heart and chronic kidney disease without heart failure, with stage 1 through stage 4 chronic kidney disease, or unspecified chronic kidney disease; N18.9 Chronic kidney disease, unspecified; F17.210 Nicotine dependence, cigarettes, uncomplicated; Z79.01 Long term (current) use of anticoagulants; Z86.73 Personal history of transient ischemic attack (TIA), and cerebral infarction without residual deficits; R41.82 Altered mental status, unspecified; D50.9 Iron deficiency anemia, unspecified; R73.9 Hyperglycemia, unspecified; F31.9 Bipolar disorder, unspecified; B96.1 Klebsiella pneumoniae [K. pneumoniae] as the cause of diseases classified elsewhere